=== PATIENT | female | born 1955 | race Caucasian/White ===

== ENCOUNTER 2019-01-26 10:28 | Inpatient (IN) ==
[2019-01-26] MEDS ORDERED: ACETAMINOPHEN 1,000 MG/100 ML VIAL IV STA (12:21)
[2019-01-26] MEDS ORDERED: SODIUM CHLORIDE 0.9% 1000ML 2,000 ML IV ONE (12:21)
[2019-01-26 13:00] LABS: Basophils # (auto) 0.02 K/uL (0-0.2); Basophils % (auto) 0.2 %; Eosinophils # (auto) 0.19 K/uL (0-0.5); Eosinophils % (auto) 2.3 %; Hematocrit (blood only) 34.9 % (37-47); Hemoglobin 11.4 g/dL (12.0-16.0); Immature Granulocytes # (auto) 0.02 K/uL (0.00-0.02); Immature Granulocytes % (auto) 0.2 %; Lymphocytes # (auto) 0.66 K/uL (1.2-3.4); Mean Corpuscular Hgb Conc 32.7 g/dL (32-36); Mean Corpuscular Volume 79.5 fL (80-100); Mean Platelet Volume 9.6 fL (7.4-10.4); Monocytes # (auto) 0.94 K/uL (0.11-0.59); Monocytes % (auto) 11.4 %; Neutrophils # (auto) 6.41 K/uL (1.4-6.5); Neutrophils % (auto) 77.9 %; Platelet Count 263 K/uL (130-400); RDW Standard Deviation 43.8 fL (36.4-46.3); Red Blood Count 4.39 M/uL (4.2-5.4); White Blood Count 8.24 K/uL (4.8-10.8)
--- NOTE | 2019-01-26 13:03 | XRay Report ---
XR chest 1V portable CLINICAL HISTORY: Sepsis COMPARISON STUDY: 04/22/2015 FINDINGS: The cardiac and mediastinal contours are normal. There is no evidence of focal pulmonary co nsolidation. There is no evidence of failure. No pleural effusions are visualized.[ There is a scolio sis. IMPRESSION: No active disease in the chest. Electronically signed by: Ge Llanos M.D. 01/26/2019 1:02 PM
--- NOTE | 2019-01-26 13:04 | XRay Report ---
XR knee LT 3V CLINICAL HISTORY: Pain. Swelling. Fever. COMPARISON: Left knee radiographs October 15, 2018. FINDINGS: Alignment of the revision left knee arthroplasty is anatomic. There is a large left knee j oint effusion. No prostatic fracture or lucency. IMPRESSION: 1. Status post revision left knee arthroplasty. No periprosthetic fracture or lucency. 2. Large left knee joint effusion. Electronically signed by: Kulwinder Jo M.D. 01/26/2019 1:03 PM
--- NOTE | 2019-01-26 13:04 | XRay Report ---
XR tibia fibula LT 2V CLINICAL HISTORY: Left lower leg pain COMPARISON: None DISCUSSION: There is a long stem total left knee arthroplasty. No fractures are visualized. No destru ctive lesions are evident. IMPRESSION: Postsurgical change. No acute fractures. No destructive lesions are visualized. Electronically signed by: Ge Llanos M.D. 01/26/2019 1:03 PM
[2019-01-26 13:13] LABS: Partial Thromboplastin Ratio 0.9; Partial Thromboplastin Time 25.1 Seconds (21.0-31.0); Prothrombin Time 10.4 Seconds (9.0-12.0)
[2019-01-26 13:20] LABS: Albumin Level 3.3 gm/dl (3.4-5.0); BUN Creatinine Ratio 11.4 (10-20); Calcium 8.9 mg/dl (8.5-10.1); Est GFR (African American) 106.1; Est GFR (Non-African American) 91.6; Magnesium 2.1 mg/dl (1.8-2.4); Potassium 3.8 mmol/L (3.5-5.1)
[2019-01-26 13:26] LABS: Influenza A virus by PCR Neg for Influ A (Neg); Influenza B virus by PCR Neg for Influ B (Neg)
[2019-01-26 13:29] LABS: Albumin Globulin Ratio 0.7 (0.9-2); Bilirubin,Total 0.9 mg/dl (0.2-1); C Reactive Protein 20.8 mg/dl (0-0.29); Globulin 4.5 gm/dl (2.5-4.0); Phosphorus 2.5 mg/dl (2.5-4.9); Total Protein 7.8 gm/dl (6.4-8.2)
[2019-01-26 14:29] LABS: Appearance Urine Clear (Clear); Bilirubin Urine Negative (Negative); Blood Urine Negative (Negative); Color Urine Yellow; Glucose Urine UA Negative (Negative); Ketones Urine Trace (Negative); Leukocyte Esterase Urine Negative (Negative); Nitrite Urine Negative (Negative); Protein Urine Negative (Negative); Urobilinogen Urine Negative (Negative); pH Urine 7.5 (4.5-7.5)
--- NOTE | 2019-01-26 14:39 | Emergency Department Note ---
Entered by Tamara Casper acting as a scribe for Schuyler Chase MD History of Present Illness General Chief complaint: Leg Injury/Pain Stated complaint: PAIN IN LEFT IBARRA Time Seen by Provider: 01/26/19 11:44 Source: patient Mode of arrival: ambulatory Limitations: no limitations History of Present Illness Onset (ago): day(s) 3 Location: lower extremity (left ibarra pain) Pain Consistency: + other (worsening) Maximum Pain Intensity: 9 Exacerbated By: + movement Associated symptoms: + fever/chills (The patient complains of fever. ), + headaches and + other (The patient complains of pain o the right side of her left ibarra, leg redness, and body aches. The patient denies congestion. ); no cough The patient is a 63 year old female with a history of knee replacement, knee surgery, blood clot, and MRSA who presents to the ED with complaints of worsening left ibarra pain that onset 3 days ago. The patient states that she had a knee surgery during the first week of October. She notes that 3 days ago she had blood work and an X-ray competed. The patient states that her pain is exacerbated with movement. The patient complains of pain on the right side of her left ibarra. She notes that the pain was on the left side of her left ibarra when she was seen, but has since radiated. The patient states that the redness was not present until today. She notes that she has had intermittent fevers, headache, and body aches. The patient denies cough and congestion. She notes that she has been taking extra strength Tylenol. Home Medications Home Medications Medication Instructions Recorded Confirmed Type Probiotic 1 tab PO BID 08/11/18 01/26/19 History albuterol sulfate [Proventil HFA] 2 puff INHALATION Q6H PRN 08/11/18 01/26/19 History famotidine [Pepcid] 20 mg PO DAILY PRN 08/11/18 01/26/19 History montelukast [Singulair] 10 mg PO HS 08/11/18 01/26/19 History rizatriptan 1 tab PO DAILY PRN 08/11/18 01/26/19 History tapentadol [Nucynta] 50 mg PO .q4-6 hours PRN #60 tab 10/17/18 01/26/19 Rx acetaminophen [Tylenol Arthritis 1,300 mg PO QAM 01/26/19 01/26/19 History Pain] celecoxib 200 mg PO UD 01/26/19 01/26/19 History salmeterol [Serevent Diskus] 1 inh INHALATION BID 01/26/19 01/26/19 History Allergies Allergy/AdvReac Type Severity Reaction Status Date / Time hydrocodone AdvReac Intermediate Headache Verified 01/27/19 13:07 hydromorphone AdvReac Intermediate NIGHTMARES Verified 01/27/19 13:07 oxycodone AdvReac Intermediate headaches Verified 01/27/19 13:07 tetracycline AdvReac Mild NAUSEA Verified 01/27/19 13:07 tramadol AdvReac Mild DISORIENTED Verified 01/27/19 13:07 PAIN MEDICATION Allergy Unknown SEVERE Uncoded 01/27/19 13:07 HEADACHES Past Med/Surg History Medical History Hx of blood clots History of revision of total replacement of left knee joint 10/15/18. SAB with peripheral nerve block. no issues. 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 Anemia CHRONIC- BASELINE HGB 10-11 RANGE PER CHART REVIEW Asthma GERD (gastroesophageal reflux disease) History of paroxysmal atrial tachycardia REMOTE- "LONG TIME AGO" PER PATIENT; NO RECENT ISSUES Hx of thrombosis LEFT GROIN (1979)- WAS ON COUMADIN; SINCE DISCONTINUED Left knee DJD Migraines Osteoarthritis Surgical History History of left knee surgery I&D and poly replacement History of tooth extraction WISDOM Hx of arthroscopic knee surgery MULTIPLE B/L; MOST RECENT= LEFT KNEE INSERTION ANTIBIOTIC SPACER/REMOVAL PROSTHESIS 2/2 INFECTION= 08/18/16= LMA#4 X 1 ATTEMPT Hx of hysterectomy Hx of tonsillectomy Hx of total knee replacement RIGHT AND LEFT PICC (peripherally inserted central catheter) in place Social History Preferred Language: Uzbek Communication Ability: Effective Associate Consulting Engineer Required: No Beliefs That Will Affect Care: None marital status: Current Living Situation: Spouse Current Living Situation Comment: CURRENTLY HAS Let COMING REGULARLY Other Information That Helps Us Care for You: No Feels Safe at Home: Yes Safety Concerns: Feels Safe At This Time Smoking Status: Never smoker Hx Alcohol Use: Yes Hx Substance Use: No Review of Systems See HPI for pertinent positives & negatives. and A total of 10 systems reviewed and were otherwise negative Physical Exam Vital Signs Vital Signs - 24 hr 01/26/19 15:30 01/26/19 15:31 01/26/19 16:00 Temperature Temperature Source Pulse Rate 83 86 86 Pulse Rate [Apical] Pulse Rate [Left Finger] Pulse Rate [Right Finger] Pulse Rate from SpO2 Sensor 84 86 Pulse Rhythm [Apical] Pulse Rhythm [Left Finger] Pulse Strength [Apical] Pulse Strength [Left Finger] Respiratory Rate 17 17 18 Respiratory Effort / Characteristics Respiratory Depth Respiratory Pattern Blood Pressure 118/67 Blood Pressure [Left Arm] Blood Pressure [Right Arm] Blood Pressure Mean 84 Blood Pressure Mean [Left Arm] Blood Pressure Mean [Right Arm] Blood Pressure Position [Left Arm] Blood Pressure Position [Right Arm] Pulse Oximetry 95 93 Oxygen Delivery Method 01/26/19 16:11 01/26/19 16:30 01/26/19 17:00 Temperature Temperature Source Pulse Rate 86 82 Pulse Rate [Apical] 80 Pulse Rate [Left Finger] Pulse Rate [Right Finger] Pulse Rate from SpO2 Sensor Pulse Rhythm [Apical] Pulse Rhythm [Left Finger] Pulse Strength [Apical] Pulse Strength [Left Finger] Respiratory Rate 18 15 11 L Respiratory Effort / Characteristics Respiratory Depth Respiratory Pattern Blood Pressure Blood Pressure [Left Arm] 118/67 Blood Pressure [Right Arm] Blood Pressure Mean Blood Pressure Mean [Left Arm] 84 Blood Pressure Mean [Right Arm] Blood Pressure Position [Left Arm] Blood Pressure Position [Right Arm] Pulse Oximetry 95 Oxygen Delivery Method Room Air 01/26/19 17:01 01/26/19 17:54 01/26/19 23:31 Temperature 37.1 C 37.0 C Temperature Source Oral Oral Pulse Rate 82 Pulse Rate [Apical] 78 Pulse Rate [Left Finger] Pulse Rate [Right Finger] 78 Pulse Rate from SpO2 Sensor Pulse Rhythm [Apical] Regular Pulse Rhythm [Left Finger] Pulse Strength [Apical] Normal Pulse Strength [Left Finger] Respiratory Rate 16 20 14 Respiratory Effort / Characteristics Respiratory Depth Normal Respiratory Pattern Blood Pressure 119/66 Blood Pressure [Left Arm] 122/74 Blood Pressure [Right Arm] 127/69 Blood Pressure Mean 83 Blood Pressure Mean [Left Arm] 90 Blood Pressure Mean [Right Arm] 88 Blood Pressure Position [Left Arm] Lying Blood Pressure Position [Right Arm] Lying Pulse Oximetry 96 96 Oxygen Delivery Method Room Air Room Air 01/27/19 06:54 01/27/19 13:09 Temperature 37.1 C 38.4 C H Temperature Source Oral Oral Pulse Rate Pulse Rate [Apical] Pulse Rate [Left Finger] 87 Pulse Rate [Right Finger] 85 Pulse Rate from SpO2 Sensor Pulse Rhythm [Apical] Pulse Rhythm [Left Finger] Regular Pulse Strength [Apical] Pulse Strength [Left Finger] Normal Respiratory Rate 18 20 Respiratory Effort / Characteristics Non-Labored Spontaneous Respiratory Depth Normal Respiratory Pattern Regular Blood Pressure Blood Pressure [Left Arm] 148/69 H Blood Pressure [Right Arm] 126/70 Blood Pressure Mean Blood Pressure Mean [Left Arm] 95 Blood Pressure Mean [Right Arm] 88 Blood Pressure Position [Left Arm] Lying Blood Pressure Position [Right Arm] Lying Pulse Oximetry 95 97 Oxygen Delivery Method Room Air Room Air GENERAL: Awake, alert, uncomfortable-appearing, in no distress HENT: Normocephalic, atraumatic. Oropharynx with dry mucous membranes and otherwise unremarkable. EYES: Normal conjunctiva. Sclera non-icteric. NECK: Supple. No nuchal rigidity. FROM. No JVD. RESPIRATORY: Clear to auscultation. CARDIAC: Tachycardic rate, regular rhythm. Extremities warm and well perfused. Pulses equal. ABDOMEN: Soft, non-distended. No tenderness to palpation. No rebound or guarding. No masses. RECTAL: Deferred. MUSCULOSKELETAL: Chest examination reveals no tenderness. The back is symmetrical on inspection without obvious abnormality. There is no CVA tenderness to palpation. No joint edema. LOWER EXTREMITIES: Left knee and pretibial region with mild warmth and tenderness scant erythema to the pretibial region. Distal PMS intact. Significant pain with ROM of left knee. NEURO: Normal sensorium. No sensory or motor deficits noted. SKIN: Warm and dry. No jaundice noted. Course 1214: Past medical records reviewed. The patient was evaluated in room D09, and a complete history and physical examination were performed. 1500: I called [facility] Orthopedics. Dr. Starkey will call back in between clinic appointments. 1640: I reviewed the patient's case with Dr. Starkey - Ortho [facility]. He states he will come see the patient and put in orders for admission. Consultations Consultation #1: 1640: I reviewed the patient's case with Dr. Lalito Ramirez [facility]. He states he will come see the patient and put in orders for admission. Time: 16:40 Administered Medications Diphenhydramine HCl (Benadryl) 25 mg IV Q8H PRN PRN Reason: Itching Stop: 02/25/19 16:36 Last Admin: 01/26/19 22:33 Dose: 25 mg Documented by: [id number] Dextrose/Sodium Chloride (D5w And 1/2nss) 1,000 mls @ 80 mls/hr IV .[id number] [facility]ANGELIST Stop: 02/25/19 17:29 Last Infusion: 01/27/19 13:38 Dose: 0 mls/hr Documented by: [id number] Infusion: 01/27/19 13:14 Dose: 0 mls/hr Documented by: [id number] Infusion: 01/27/19 06:23 Dose: 80 mls/hr Documented by: [id number] Admin: 01/27/19 05:31 Dose: 80 mls/hr Documented by: [id number] Infusion: 01/27/19 05:31 Dose: 80 mls/hr Documented by: [id number] Infusion: 01/26/19 22:22 Dose: 80 mls/hr Documented by: [id number] Infusion: 01/26/19 20:52 Dose: 0 mls/hr Documented by: [id number] Admin: 01/26/19 19:25 Dose: 80 mls/hr Documented by: [id number] Acetaminophen (Ofirmev) 1,000 mg in 100 mls @ 400 mls/hr IV Q8H PRN PRN Reason: Moderate Pain Stop: 02/25/19 17:33 Last Infusion: 01/26/19 23:57 Dose: 0 mls/hr Documented by: [id number] Admin: 01/26/19 23:42 Dose: 400 mls/hr Documented by: [id number] Vancomycin HCl 1,000 mg/ (Sodium Chloride) 270 mls @ 125 mls/hr IV Q12H EVANGELIST; Protocol Stop: 02/06/19 07:59 Last Infusion: 01/27/19 10:16 Dose: 0 mls/hr Documented by: [id number] Admin: 01/27/19 08:06 Dose: 125 mls/hr Documented by: [id number] Ketorolac Tromethamine (Toradol) 15 mg IV Q6H PRN PRN Reason: Pain Stop: 01/31/19 17:33 Last Admin: 01/27/19 05:31 Dose: 15 mg Documented by: [id number] Admin: 01/26/19 19:31 Dose: 15 mg Documented by: [id number] Montelukast Sodium (Singulair) 10 mg PO HS [facility]ANGELIST Stop: 02/25/19 20:59 Last Admin: 01/26/19 20:52 Dose: 10 mg Documented by: [id number] Salmeterol Xinafoate (Serevent Diskus) 1 puffs INH BID EVANGELIST Stop: 02/25/19 20:59 Last Admin: 01/27/19 08:07 Dose: 1 puffs Documented by: [id number] Admin: 01/26/19 20:52 Dose: 1 puffs Documented by: [id number] Discontinued Medications Acetaminophen (Ofirmev) 1,000 mg in 100 mls @ 400 mls/hr IV NOW STA Stop: 01/26/19 12:35 Last Infusion: 01/26/19 13:56 Dose: 0 mls/hr Documented by: [id number] Admin: 01/26/19 12:46 Dose: 400 mls/hr Documented by: [id number] Sodium Chloride (Nss 1000ml) 2,000 mls @ 999 mls/hr IV .Q2H1M ONE Stop: 01/26/19 14:21 Last Infusion: 01/26/19 17:12 Dose: 0 mls/hr Documented by: [id number] Admin: 01/26/19 12:47 Dose: 999 mls/hr Documented by: [id number] Sodium Chloride (Nss 1000ml) 1,000 mls @ 125 mls/hr IV .Q8H STA Stop: 01/27/19 00:42 Last Admin: 01/26/19 20:45 Dose: Not Given Documented by: [id number] Acetaminophen (Ofirmev) 65 mls @ 200 mls/hr IV NOW ONE Stop: 01/26/19 17:02 Last Infusion: 01/26/19 17:22 Dose: 0 mls/hr Documented by: [id number] Admin: 01/26/19 17:05 Dose: 200 mls/hr Documented by: [id number] Vancomycin HCl 1,500 mg/ (Sodium Chloride) 530 mls @ 200 mls/hr IV TODAY@1999 [facility] Stop: 01/26/19 22:38 Last Infusion: 01/26/19 23:09 Dose: 0 mls/hr Documented by: [id number] Admin: 01/26/19 20:30 Dose: 200 mls/hr Documented by: [id number] Medical Decision Making Differential Diagnosis Differential diagnosis: Etiologies such as cellulitis, abscess, osteomyelitis, MRSA infection, DVT, necrotizing fasciitis, dermatitis, drug eruption, as well as others were entertained. Medical Records Attestation: I reviewed the patient's medical records. Home Medications Current Medication List: was personally reviewed by me Laboratory Data Attestation: I reviewed the patient's lab results. Result diagrams: 01/26/19 12:40 01/27/19 06:38 Lab Results 01/26/19 01/26/19 01/26/19 Range/Units 12:40 12:40 12:40 WBC 8.24 (4.8-10.8) K/uL RBC 4.39 (4.2-5.4) M/uL Hgb 11.4 L (12.0-16.0) g/dL Hct 34.9 L (37-47) % MCV 79.5 L (80-100) fL MCH 26.0 (25-34) pg MCHC 32.7 (32-36) g/dL RDW Std Deviation 43.8 (36.4-46.3) fL RDW Coeff of Yolanda 15.0 H (11.5-14.5) % Plt Count 263 (130-400) K/uL MPV 9.6 (7.4-10.4) fL Immature Gran % (Auto) 0.2 % Neut % (Auto) 77.9 % Lymph % (Auto) 8.0 % Chase % (Auto) 11.4 % Eos % (Auto) 2.3 % Baso % (Auto) 0.2 % Immature Gran # (Auto) 0.02 (0.00-0.02) K/uL Neut # (Auto) 6.41 (1.4-6.5) K/uL Lymph # (Auto) 0.66 L (1.2-3.4) K/uL Chase # (Auto) 0.94 H (0.11-0.59) K/uL Eos # (Auto) 0.19 (0-0.5) K/uL Baso # (Auto) 0.02 (0-0.2) K/uL ESR (0-21) mm/hr PT 10.4 (9.0-12.0) Seconds INR 1.0 (0.9-1.1) APTT 25.1 (21.0-31.0) Seconds PTT Ratio 0.9 Sodium 135 L (136-145) mmol/L Potassium 3.8 (3.5-5.1) mmol/L Chloride 102 (98-107) mmol/L Carbon Dioxide 26 (21-32) mmol/L Anion Gap 7.0 (3-11) BUN 8 (7-18) mg/dl Creatinine 0.70 (0.6-1.2) mg/dl Est Cr Clr Drug Dosing 76.0 ml/min Est GFR ( Amer) 106.1 Est GFR (Non-Af Amer) 91.6 BUN/Creatinine Ratio 11.4 (10-20) Glucose 109 H (70-99) mg/dl Lactate (0.4-2.0) mmol/L Calcium 8.9 (8.5-10.1) mg/dl Phosphorus 2.5 (2.5-4.9) mg/dl Magnesium 2.1 (1.8-2.4) mg/dl Total Bilirubin 0.9 (0.2-1) mg/dl AST 9 L (15-37) U/L ALT 16 (12-78) U/L Alkaline Phosphatase 92 (45-117) U/L C-Reactive Protein 20.80 H (0-0.29) mg/dl Total Protein 7.8 (6.4-8.2) gm/dl Albumin 3.3 L (3.4-5.0) gm/dl Globulin 4.5 H (2.5-4.0) gm/dl Albumin/Globulin Ratio 0.7 L (0.9-2) Procalcitonin (0-0.5) ng/ml Urine Color Urine Appearance (Clear) Urine pH (4.5-7.5) Ur Specific [place] (1.000-1.030) Urine Protein (Negative) Urine Glucose (UA) (Negative) Urine Ketones (Negative) Urine Blood (Negative) Urine Nitrite (Negative) Urine Bilirubin (Negative) Urine Urobilinogen (Negative) Ur Leukocyte Esterase (Negative) Urine WBC (Auto) (0-5) /hpf Urine RBC (Auto) (0-4) /hpf U Hyaline Cast (Auto) (0-5) /lpf U Epithel Cells (Auto) (0-5) /lpf Urine Bacteria (Auto) (Negative) Fluid Source Fluid Color Fluid Appearance Fluid WBC /uL Fluid RBC /uL Fluid Polynuclear WBCs % Fluid Mononuclear WBCs % Influenza Type A (PCR) (Neg) Influenza Type B (PCR) (Neg) 01/26/19 01/26/19 01/26/19 Range/Units 12:40 12:40 12:40 WBC (4.8-10.8) K/uL RBC (4.2-5.4) M/uL Hgb (12.0-16.0) g/dL Hct (37-47) % MCV (80-100) fL MCH (25-34) pg MCHC (32-36) g/dL RDW Std Deviation (36.4-46.3) fL RDW Coeff of Yolanda (11.5-14.5) % Plt Count (130-400) K/uL MPV (7.4-10.4) fL Immature Gran % (Auto) % Neut % (Auto) % Lymph % (Auto) % Chase % (Auto) % Eos % (Auto) % Baso % (Auto) % Immature Gran # (Auto) (0.00-0.02) K/uL Neut # (Auto) (1.4-6.5) K/uL Lymph # (Auto) (1.2-3.4) K/uL Chase # (Auto) (0.11-0.59) K/uL Eos # (Auto) (0-0.5) K/uL Baso # (Auto) (0-0.2) K/uL ESR 75 H (0-21) mm/hr PT (9.0-12.0) Seconds INR (0.9-1.1) APTT (21.0-31.0) Seconds PTT Ratio Sodium (136-145) mmol/L Potassium (3.5-5.1) mmol/L Chloride (98-107) mmol/L Carbon Dioxide (21-32) mmol/L Anion Gap (3-11) BUN (7-18) mg/dl Creatinine (0.6-1.2) mg/dl Est Cr Clr Drug Dosing ml/min Est GFR ( Amer) Est GFR (Non-Af Amer) BUN/Creatinine Ratio (10-20) Glucose (70-99) mg/dl Lactate 1.0 (0.4-2.0) mmol/L Calcium (8.5-10.1) mg/dl Phosphorus (2.5-4.9) mg/dl Magnesium (1.8-2.4) mg/dl Total Bilirubin (0.2-1) mg/dl AST (15-37) U/L ALT (12-78) U/L Alkaline Phosphatase (45-117) U/L C-Reactive Protein (0-0.29) mg/dl Total Protein (6.4-8.2) gm/dl Albumin (3.4-5.0) gm/dl Globulin (2.5-4.0) gm/dl Albumin/Globulin Ratio (0.9-2) Procalcitonin 0.07 (0-0.5) ng/ml Urine Color Urine Appearance (Clear) Urine pH (4.5-7.5) Ur Specific [place] (1.000-1.030) Urine Protein (Negative) Urine Glucose (UA) (Negative) Urine Ketones (Negative) Urine Blood (Negative) Urine Nitrite (Negative) Urine Bilirubin (Negative) Urine Urobilinogen (Negative) Ur Leukocyte Esterase (Negative) Urine WBC (Auto) (0-5) /hpf Urine RBC (Auto) (0-4) /hpf U Hyaline Cast (Auto) (0-5) /lpf U Epithel Cells (Auto) (0-5) /lpf Urine Bacteria (Auto) (Negative) Fluid Source Fluid Color Fluid Appearance Fluid WBC /uL Fluid RBC /uL Fluid Polynuclear WBCs % Fluid Mononuclear WBCs % Influenza Type A (PCR) (Neg) Influenza Type B (PCR) (Neg) 01/26/19 01/26/19 01/26/19 Range/Units 12:40 14:10 17:15 WBC (4.8-10.8) K/uL RBC (4.2-5.4) M/uL Hgb (12.0-16.0) g/dL Hct (37-47) % MCV (80-100) fL MCH (25-34) pg MCHC (32-36) g/dL RDW Std Deviation (36.4-46.3) fL RDW Coeff of Yolanda (11.5-14.5) % Plt Count (130-400) K/uL MPV (7.4-10.4) fL Immature Gran % (Auto) % Neut % (Auto) % Lymph % (Auto) % Chase % (Auto) % Eos % (Auto) % Baso % (Auto) % Immature Gran # (Auto) (0.00-0.02) K/uL Neut # (Auto) (1.4-6.5) K/uL Lymph # (Auto) (1.2-3.4) K/uL Chase # (Auto) (0.11-0.59) K/uL Eos # (Auto) (0-0.5) K/uL Baso # (Auto) (0-0.2) K/uL ESR (0-21) mm/hr PT (9.0-12.0) Seconds INR (0.9-1.1) APTT (21.0-31.0) Seconds PTT Ratio Sodium (136-145) mmol/L Potassium (3.5-5.1) mmol/L Chloride (98-107) mmol/L Carbon Dioxide (21-32) mmol/L Anion Gap (3-11) BUN (7-18) mg/dl Creatinine (0.6-1.2) mg/dl Est Cr Clr Drug Dosing ml/min Est GFR ( Amer) Est GFR (Non-Af Amer) BUN/Creatinine Ratio (10-20) Glucose (70-99) mg/dl Lactate (0.4-2.0) mmol/L Calcium (8.5-10.1) mg/dl Phosphorus (2.5-4.9) mg/dl Magnesium (1.8-2.4) mg/dl Total Bilirubin (0.2-1) mg/dl AST (15-37) U/L ALT (12-78) U/L Alkaline Phosphatase (45-117) U/L C-Reactive Protein (0-0.29) mg/dl Total Protein (6.4-8.2) gm/dl Albumin (3.4-5.0) gm/dl Globulin (2.5-4.0) gm/dl Albumin/Globulin Ratio (0.9-2) Procalcitonin (0-0.5) ng/ml Urine Color Yellow Urine Appearance Clear (Clear) Urine pH 7.5 (4.5-7.5) Ur Specific [place] 1.010 (1.000-1.030) Urine Protein Negative (Negative) Urine Glucose (UA) Negative (Negative) Urine Ketones Trace H (Negative) Urine Blood Negative (Negative) Urine Nitrite Negative (Negative) Urine Bilirubin Negative (Negative) Urine Urobilinogen Negative (Negative) Ur Leukocyte Esterase Negative (Negative) Urine WBC (Auto) (0-5) /hpf Urine RBC (Auto) (0-4) /hpf U Hyaline Cast (Auto) (0-5) /lpf U Epithel Cells (Auto) (0-5) /lpf Urine Bacteria (Auto) (Negative) Fluid Source LEFT KNEE Fluid Color YELLOW Fluid Appearance CLOUDY Fluid WBC 51487 /uL Fluid RBC 17023 /uL Fluid Polynuclear WBCs 95.7 % Fluid Mononuclear WBCs 4.3 % Influenza Type A (PCR) Neg for Influ A (Neg) Influenza Type B (PCR) Neg for Influ B (Neg) 01/27/19 01/27/19 Range/Units 06:38 Unknown WBC (4.8-10.8) K/uL RBC (4.2-5.4) M/uL Hgb (12.0-16.0) g/dL Hct (37-47) % MCV (80-100) fL MCH (25-34) pg MCHC (32-36) g/dL RDW Std Deviation (36.4-46.3) fL RDW Coeff of Yolanda (11.5-14.5) % Plt Count (130-400) K/uL MPV (7.4-10.4) fL Immature Gran % (Auto) % Neut % (Auto) % Lymph % (Auto) % Chase % (Auto) % Eos % (Auto) % Baso % (Auto) % Immature Gran # (Auto) (0.00-0.02) K/uL Neut # (Auto) (1.4-6.5) K/uL Lymph # (Auto) (1.2-3.4) K/uL Chase # (Auto) (0.11-0.59) K/uL Eos # (Auto) (0-0.5) K/uL Baso # (Auto) (0-0.2) K/uL ESR (0-21) mm/hr PT (9.0-12.0) Seconds INR (0.9-1.1) APTT (21.0-31.0) Seconds PTT Ratio Sodium (136-145) mmol/L Potassium (3.5-5.1) mmol/L Chloride (98-107) mmol/L Carbon Dioxide (21-32) mmol/L Anion Gap (3-11) BUN (7-18) mg/dl Creatinine 0.57 L (0.6-1.2) mg/dl Est Cr Clr Drug Dosing 93.3 ml/min Est GFR ( Amer) 113.5 Est GFR (Non-Af Amer) 98.0 BUN/Creatinine Ratio (10-20) Glucose (70-99) mg/dl Lactate (0.4-2.0) mmol/L Calcium (8.5-10.1) mg/dl Phosphorus (2.5-4.9) mg/dl Magnesium (1.8-2.4) mg/dl Total Bilirubin (0.2-1) mg/dl AST (15-37) U/L ALT (12-78) U/L Alkaline Phosphatase (45-117) U/L C-Reactive Protein (0-0.29) mg/dl Total Protein (6.4-8.2) gm/dl Albumin (3.4-5.0) gm/dl Globulin (2.5-4.0) gm/dl Albumin/Globulin Ratio (0.9-2) Procalcitonin (0-0.5) ng/ml Urine Color Yellow Urine Appearance Clear (Clear) Urine pH 6.0 (4.5-7.5) Ur Specific [place] 1.013 (1.000-1.030) Urine Protein Negative (Negative) Urine Glucose (UA) Negative (Negative) Urine Ketones Negative (Negative) Urine Blood Trace H (Negative) Urine Nitrite Negative (Negative) Urine Bilirubin Negative (Negative) Urine Urobilinogen Negative (Negative) Ur Leukocyte Esterase Negative (Negative) Urine WBC (Auto) 1-5 (0-5) /hpf Urine RBC (Auto) 0-4 (0-4) /hpf U Hyaline Cast (Auto) 1-5 (0-5) /lpf U Epithel Cells (Auto) 20-30 H (0-5) /lpf Urine Bacteria (Auto) Negative (Negative) Fluid Source Fluid Color Fluid Appearance Fluid WBC /uL Fluid RBC /uL Fluid Polynuclear WBCs % Fluid Mononuclear WBCs % Influenza Type A (PCR) (Neg) Influenza Type B (PCR) (Neg) Imaging Data Radiologist's Impression: Radiology results as stated below per my review and the radiologist's interpretation: LEFT LOWER EXTREMITY VENOUS DOPPLER HISTORY: Left leg pain swelling COMPARISON STUDY: None. FINDINGS: Linear nonocclusive echogenic stranding within the left common femoral vein consistent with chronic thrombus. Otherwise, the remaining left lower extremity deep venous structures are patent. Mildly enlarged and hypoechoic left inguinal and left popliteal lymph nodes. The dominant popliteal lymph node measures 1.3 x 1.0 cm. IMPRESSION: 1. No acute DVT within the left lower extremity. 2. Small amount of nonocclusive linear chronic thrombus within the left common femoral vein. 3. Mild left inguinal left popliteal lymphadenopathy. This could be reactive to the recent surgery. Electronically signed by: Gordo Deleon M.D. 01/26/2019 2:43 PM Dictated: 01/26/19 1440 Transcribed: 01/26/19 1440 XR tibia fibula LT 2V CLINICAL HISTORY: Left lower leg pain COMPARISON: None DISCUSSION: There is a long stem total left knee arthroplasty. No fractures are visualized. No destructive lesions are evident. IMPRESSION: Postsurgical change. No acute fractures. No destructive lesions are visualized. Electronically signed by: Ge Llanos M.D. 01/26/2019 1:03 PM Dictated: 01/26/19 1302 Transcribed: 01/26/19 1302 XR knee LT 3V CLINICAL HISTORY: Pain. Swelling. Fever. COMPARISON: Left knee radiographs October 15, 2018. FINDINGS: Alignment of the revision left knee arthroplasty is anatomic. There is a large left knee joint effusion. No prostatic fracture or lucency. IMPRESSION: 1. Status post revision left knee arthroplasty. No periprosthetic fracture or lucency. 2. Large left knee joint effusion. Electronically signed by: Kulwinder Jo M.D. 01/26/2019 1:03 PM Dictated: 01/26/19 1301 Transcribed: 01/26/19 1301 XR chest 1V portable CLINICAL HISTORY: Sepsis COMPARISON STUDY: 04/22/2015 FINDINGS: The cardiac and mediastinal contours are normal. There is no evidence of focal pulmonary consolidation. There is no evidence of failure. No pleural effusions are visualized.[ There is a scoliosis. IMPRESSION: No active disease in the chest. Electronically signed by: Ge Llanos M.D. 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 On arrival, the patient is uncomfortable appearing but no acute distress, febrile to 38.1 with heart rate in the 110s and vital signs otherwise stable. On exam the patient has mild erythema to her left pretibial region with warmth of her left knee and lower leg. Left knee with large effusion with pain with range of motion. Distal PMS intact. WBC within normal limits. H/H 11.4/34.9 within patient's prior range. Platelets within normal limits. ESR and CRP demonstrate increased from last week 75 up from 28 and 20.8 up from 12.3, respectively. Pro-calcitonin within normal limits. UA negative for infection. Flu negative. Plain film of the knee and tibia demonstrate large knee effusion but otherwise no radiographic evidence of osseous involvement. Cultures drawn and pending. ABXs deferred until likely ortho fluid aspiration. Case was discussed with Dr. Starkey, the patient's [facility] surgeon, who agrees with admission to r/o joint infection and they will evaluate the patient at the bedside and perform arthrocentesis. Impression & Plan Cellulitis Discharge Plan Visit Data *Final* Discharge Date/Time: 01/26/19 17:30 Chief Complaint: Leg Injury/Pain Stated Complaint: PAIN IN LEFT IBARRA ED Provider: Schuyler Chase Discharge Problem: Cellulitis Patient Disposition: Admitted As Inpatient Discharge Instructions Interventions: ED Discharge Assessment Last Done: 01/26/19 17:30 Discharge Problem: Cellulitis Qualifiers: Site of cellulitis: extremity Site of cellulitis of extremity: lower extremity Laterality: left Qualified Code(s): L03.116 - Cellulitis of left lower limb The scribe's documentation has been prepared under my direction and personally reviewed by me in its entirety. I confirm that the note above accurately reflects all work, treatment, procedures, and medical decision making performed by me.
--- NOTE | 2019-01-26 14:44 | Ultrasound Report ---
LEFT LOWER EXTREMITY VENOUS DOPPLER HISTORY: Left leg pain swelling COMPARISON STUDY: None. FINDINGS: Linear nonocclusive echogenic stranding within the left common femoral vein consistent with chronic thrombus. Otherwise, the remaining left lower extremity deep venous structures are patent. M ildly enlarged and hypoechoic left inguinal and left popliteal lymph nodes. The dominant popliteal ly mph node measures 1.3 x 1.0 cm. IMPRESSION: 1. No acute DVT within the left lower extremity. 2. Small amount of nonocclusive linear chronic thrombus within the left common femoral vein. 3. Mild left inguinal left popliteal lymphadenopathy. This could be reactive to the recent surgery. Electronically signed by: Gordo Deleon M.D. 01/26/2019 2:43 PM
[2019-01-26] MEDS ORDERED: OXYCODONE/ACETAMINOPHEN 5mg/325mg TAB PO PRN (16:37)
[2019-01-26] MEDS ORDERED: ONDANSETRON INJ 2 MG/ML 2 ML VIAL IV PRN (16:37)
[2019-01-26] MEDS ORDERED: DiphenhydrAMINE HCL 50 MG/ML VIAL IV PRN (16:37)
[2019-01-26] MEDS ORDERED: SODIUM CHLORIDE 0.9% 1000ML 1,000 ML IV STA (16:43)
[2019-01-26] MEDS ORDERED: ACETAMINOPHEN 65 ML IV ONE (16:43)
[2019-01-26] MEDS ORDERED: TAPENTADOL HCL 50 MG TAB PO PRN ×2 (17:32→17:34)
[2019-01-26] MEDS ORDERED: ALBUTEROL HFA 8 GM INHALER INH PRN (17:34)
[2019-01-26] MEDS ORDERED: HYDROmorphone INJ 0.5 MG/0.5 ML SYR IV PRN (17:34)
[2019-01-26] MEDS ORDERED: RIZATRIPTAN BENZOATE 10 MG TAB PO PRN (17:34)
[2019-01-26] MEDS ORDERED: VANCOMYCIN CONSULT ACTIVE PRN (18:01)
[2019-01-26] MEDS ORDERED: MoRPHine SULFATE 4 MG/ML 1 ML CARP\\VIAL IV PRN (18:06)
[2019-01-26 18:37] LABS: Color Body Fluid YELLOW; Mononuclear WBC Body Fluid 4.3 %; Polynuclear WBC Body Fluid 95.7 %; RBC Body Fluid (A) 14000 /uL; WBC Body Fluid (A) 43520 /uL
[2019-01-26 19:04] LABS: Source Body Fluid LEFT KNEE
--- NOTE | 2019-01-26 19:08 | Anesthesiology Consultation ---
Date of Service January 26, 2019 Assessment & Plan (1) Encounter for pre-operative examination: Chart Review Chart Review: Acceptable Risk for Surgery and Patient NOT seen in Pre Admission Testing Consults Requested none History Surgery Operation Date: 01/27/19 07:30 Proposed Procedures p Left Knee Incision and Drainage, Poly Exchange with Antibiotic Beads - Giovanni Starkey DO Height/Weight Height: 5 ft 6 in Weight: 61.8 kg Allergies Allergy/AdvReac Type Severity Reaction Status Date / Time hydrocodone AdvReac Intermediate Headache Verified 01/26/19 12:27 hydromorphone AdvReac Intermediate NIGHTMARES Verified 01/26/19 12:27 oxycodone AdvReac Intermediate headaches Verified 01/26/19 12:27 tetracycline AdvReac Mild NAUSEA Verified 01/26/19 12:27 tramadol AdvReac Mild DISORIENTED Verified 01/26/19 12:27 PAIN MEDICATION Allergy Unknown SEVERE Uncoded 01/26/19 12:27 HEADACHES Medications Home Medications Medication Instructions Recorded Confirmed Last Taken Probiotic 1 tab PO BID 08/11/18 01/26/19 01/26/19 albuterol sulfate [Proventil HFA] 2 puff INHALATION Q6H PRN 08/11/18 01/26/19 Unknown famotidine [Pepcid] 20 mg PO DAILY PRN 08/11/18 01/26/19 01/25/19 montelukast [Singulair] 10 mg PO HS 08/11/18 01/26/19 01/25/19 rizatriptan 1 tab PO DAILY PRN 08/11/18 01/26/19 Unknown tapentadol [Nucynta] 50 mg PO .q4-6 hours PRN #60 tab 10/17/18 01/26/19 Unknown acetaminophen [Tylenol Arthritis 1,300 mg PO QAM 01/26/19 01/26/19 01/26/19 Pain] celecoxib 200 mg PO UD 01/26/19 01/26/19 01/25/19 20:00 salmeterol [Serevent Diskus] 1 inh INHALATION BID 01/26/19 01/26/19 01/26/19 Past Medical History Medical History Hx of blood clots History of revision of total replacement of left knee joint 10/15/18. SAB with peripheral nerve block. no issues. 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 Anemia CHRONIC- BASELINE HGB 10-11 RANGE PER CHART REVIEW Asthma GERD (gastroesophageal reflux disease) History of paroxysmal atrial tachycardia REMOTE- "LONG TIME AGO" PER PATIENT; NO RECENT ISSUES Hx of thrombosis LEFT GROIN (1979)- WAS ON COUMADIN; SINCE DISCONTINUED Left knee DJD Migraines Osteoarthritis Past Surgical History Surgical History History of left knee surgery I&D and poly replacement History of tooth extraction WISDOM Hx of arthroscopic knee surgery MULTIPLE B/L; MOST RECENT= LEFT KNEE INSERTION ANTIBIOTIC SPACER/REMOVAL PROSTHESIS 2/ INFECTION= 08/18/16= LMA#4 X 1 ATTEMPT Hx of hysterectomy Hx of tonsillectomy Hx of total knee replacement RIGHT AND LEFT PICC (peripherally inserted central catheter) in place Social History Smoking Status: Never smoker Hx Alcohol Use: Yes Alcohol type: wine alcohol intake frequency: holidays/special occasions only Hx Substance Use: No substance use type: does not use Physical Exam Vital Signs Last Vital Signs Temp 37.1 C 01/26/19 17:54 Pulse 78 01/26/19 17:54 Resp 20 01/26/19 17:54 BP 122/74 01/26/19 17:54 Pulse Ox 96 01/26/19 17:54 Testing Electrocardiogram Date: 03/15/18 Findings: + NSR @ (76) sinus rhythm is sinus arrhythmia. Chest X-Ray Date: 01/26/19 FINDINGS: The cardiac and mediastinal contours are normal. There is no evidence of focal pulmonary consolidation. There is no evidence of failure. No pleural effusions are visualized.[ There is a scoliosis. IMPRESSION: No active disease in the chest. Laboratory Results 01/26/19 12:40 01/26/19 12:40 PT 10.4 Seconds (9.0-12.0) 01/26/19 12:40 INR 1.0 (0.9-1.1) 01/26/19 12:40 APTT 25.1 Seconds (21.0-31.0) 01/26/19 12:40 Urine Color Yellow 01/26/19 14:10 Urine Appearance Clear (Clear) 01/26/19 14:10 Urine pH 7.5 (4.5-7.5) 01/26/19 14:10 Ur Specific [place] 1.010 (1.000-1.030) 01/26/19 14:10 Urine Protein Negative (Negative) 01/26/19 14:10 Urine Glucose (UA) Negative (Negative) 01/26/19 14:10 Urine Ketones Trace (Negative) H 01/26/19 14:10 Urine Nitrite Negative (Negative) 01/26/19 14:10 Ur Leukocyte Esterase Negative (Negative) 01/26/19 14:10
[2019-01-26] MEDS: D5W AND 1/2NSS 1,000 ML IV SCH (19:25)
[2019-01-26] MEDS: KETOROLAC TROMETHAMINE 15 MG/ML VIAL IV PRN (19:31)
[2019-01-26] MEDS ORDERED: VANCOMYCIN HCL 1,500 MG in SODIUM CHLORIDE 0.9% 500 ML IV SCH (20:00)
[2019-01-26] MEDS: SALMETEROL XINAFOATE 50MCG 28 BLISTER INH INH SCH (20:52)
[2019-01-26] MEDS: MONTELUKAST SODIUM 10 MG TABLET PO SCH (20:52)
--- NOTE | 2019-01-26 21:10 | Pharmacy Report ---
Pharmacy Abx Initial Consult - Date of Service January 26, 2019 - Pharmacy Dosing Scope Date of Consult: 01/26/19 Consultation requested by: [facility] is consulted to initiate vancomycin IV dosing therapy, order appropriate labs and adjust drug dose/frequency. - Subjective The patient is a 63 year old F admitted on 01/26/19 16:37 with infected left knee. Hx of TKA in 2014 with revision Oct 2018. Possible OR 01/27/18. - Objective Height: 5 ft 6 in Weight: 61.8 kg Vital Signs (Past 12hrs): Vital Signs Temp Pulse Pulse Resp BP BP Pulse Ox 01/26/19 17:54 37.1 C 78 20 122/74 96 01/26/19 17:01 82 16 119/66 01/26/19 17:00 82 11 L 01/26/19 16:30 86 15 01/26/19 16:11 80 18 118/67 95 01/26/19 16:00 86 18 01/26/19 15:31 86 17 93 01/26/19 15:30 83 17 118/67 95 01/26/19 15:01 89 18 95 01/26/19 15:00 86 18 126/71 95 01/26/19 14:45 89 8 L 01/26/19 14:00 99 H 21 136/72 93 01/26/19 13:30 96 H 20 133/70 98 01/26/19 13:01 105 H 19 124/89 97 01/26/19 12:51 96 01/26/19 12:30 102 H 23 149/87 H 95 01/26/19 12:07 105 H 15 142/71 H 96 01/26/19 11:14 38.1 C H 110 H 20 138/70 96 Lab Results (24hrs): Laboratory Tests (24 Hours) 01/26/19 01/26/19 01/26/19 12:40 12:40 12:40 WBC Neut # (Auto) ESR 75 H Creatinine 0.70 Est Cr Clr Drug Dosing 76.0 C-Reactive Protein 20.80 H Procalcitonin 0.07 01/26/19 12:40 WBC 8.24 Neut # (Auto) 6.41 ESR Creatinine Est Cr Clr Drug Dosing C-Reactive Protein Procalcitonin Micro Results: 01/26/19 17:15 Gram Stain - Pending Knee,Left Aerobic and Anaerobic Culture - Pending 01/26/19 12:40 Blood Culture - Pending Blood 01/26/19 12:40 Blood Culture - Pending Blood - Risk Factors for Resistance * Hospitalization for 48 hours or more within the past 90 days * 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 Pharmacist will evaluate. Pharmacy will continue to follow and will adjust dose/frequency as necessary. Thank you.
--- NOTE | 2019-01-26 22:14 | History and Physical Report ---
DATE OF ADMISSION: 01/26/2019 CHIEF COMPLAINT: Pain in the left lower extremity. HISTORY OF PRESENT ILLNESS: The patient is a 63-year-old white female known to our practice who is status post left total knee revision in October of 2018. The patient had an infection of the previous TKA and underwent removal of hardware and implantation of antibiotic spacer prior to that. She was then on IV antibiotics for 6 weeks and then once the antibiotics were finished, she then had her revision surgery done. She states that since that time she has had no problems. She has been doing her physical therapy. She states that around of last week, she had some general malaise and fever ranging up to 101.7. She then developed some pain below the knee along the ibarra of the left lower extremity. She contacted Dr. Starkey' office and saw him in the office on Saturday. She was feeling somewhat better that day and labs were drawn and noted to be within reasonable limits from the patient's understanding. She was started on Celebrex and was sent home. Over the next several days, the patient's condition began to increase as far as pain goes with the lower extremity. She denies left knee pain but states that most of her pain has been on the ibarra itself. It continued to worsen to the point where she was directed to the Emergency Room. Labs were drawn today and showed a white count of 8.24, which was noted to be 9.6 on 01/23/2019. Her sed rate on 01/23/2019 was 28 and today's is 75. C-reactive protein drawn on the showed 12.3 and today's was 20.8. With a developing cellulitis, Dr. Starkey asked me to see the patient in the Emergency Room to aspirate her knee. This was done in the Emergency Room and afterwards she is being admitted for IV antibiotics. PAST MEDICAL HISTORY: History of previous MRSA infection, left knee, asthma, GERD, history of thrombosis, left groin in 1979, migraine headaches, osteoarthritis. PAST SURGICAL HISTORY: Above noted previous surgeries to her left knee including recent revision left TKA in October, wisdom teeth extraction in the past, history of arthroscopy of both knees right and left x3, hysterectomy, tonsillectomy, right total knee arthroplasty in the past. SOCIAL HISTORY: The patient is a nonsmoker who drinks alcohol on occasion. She is and lives with her spouse. FAMILY HISTORY: Noncontributory. MEDICATIONS: Tylenol 1300 mg p.o. q.a.m., albuterol 2 puffs inhaled q. 6 hours p.r.n., Celebrex 200 mg p.o. as directed, Pepcid 20 mg p.o. daily p.r.n., Singulair 10 mg p.o. at bedtime, probiotic 1 tab p.o. b.i.d., rizatriptan 1 tab p.o. daily p.r.n., Serevent Diskus 1 inhalation b.i.d., Nucynta 50 mg p.o. q. 4-6 hours p.r.n. ALLERGIES: HYDROCODONE, HYDROMORPHONE, OXYCODONE, TETRACYCLINE, TRAMADOL. THE PATIENT STATES MOST PAIN MEDICATIONS CAUSE NAUSEA AND VOMITING. PERCOCET CAUSES VIVID DREAMS/NIGHTMARES. REVIEW OF SYSTEMS: Noted fevers previous week, but none since then, with a feeling of general malaise and nausea, but no vomiting, no diarrhea, abdominal discomfort in general. She denies any increased cough or sputum production. No increased shortness of breath at rest or on exertion. No chest pain, chest pressure, irregular heartbeat. No hemoptysis. No current abdominal pain. No current nausea, vomiting or diarrhea. No hematemesis, melena, or hematochezia. No dysuria, hematuria, or polyuria. No dizziness or lightheadedness. PHYSICAL EXAMINATION: GENERAL: The patient is a well-developed, well-nourished, white female who is alert and oriented x3, in no acute distress, pleasant and cooperative. She looks apparently comfortable at this time and states that since she has received her Ofirmev, that her pain is controlled in her lower extremity. HEENT: Normocephalic and atraumatic. There is no scleral icterus or injection. Nasal airway is patent. Oral mucosa is pink and moist. NECK: Supple. HEART: Regular rate and rhythm. LUNGS: Clear to auscultation. ABDOMEN: Soft, round, and nontender. Bowel sounds are present x4. GENITALIA AND RECTAL: Not performed at this time. EXTREMITIES: On examination of the patient's left lower extremity, she has some noted swelling of the left knee, but it is not hot or erythematous at this time. I can do some gentle range of motion of the left knee, which causes her exquisite tenderness in the anterior compartments of the calf and ibarra, but not in the knee itself. I can palpate the knee without causing her pain. The incision is well healed and there are no areas of open drainage. She has some mild erythema noted of the lower extremity below the knee going down to the ankle. She does have good ankle range of motion without pain and no pain on the dorsum of the foot. Sensation is intact. She has exquisite tenderness on palpation of the anterior portion of the lower extremity incorporating the anterior compartments of the calf and also the ibarra itself. No obvious calf pain at this time in the left calf. Right lower extremity is essentially benign at this time. Previous scar from right TKA is noted with no pain or tenderness over this area or in the right lower extremity. Upper extremities are unaffected and has good range of motion of the shoulders, elbows, and wrists. No gross motor or sensory loss seen at this time. ASSESSMENT: Cellulitis, left lower extremity. Rule out infection, left total knee arthroplasty. PLAN: The patient agreed to undergo aspiration of the left knee. Risks of the aspiration were discussed with the patient including increased bleeding into the joint, possibility of seeding bacteria or causing infection, but not limited to these. She again was in agreement. At that point in time, a lateral suprapatellar pouch aspiration site was chosen and marked, was swabbed with 2 alcohol swabs and 3 Betadine swabs and let to dry. At that point, ethyl chloride was used to anesthetize the skin and an 18-gauge needle was then inserted into the suprapatellar pouch. A 64 mL of cloudy dark straw-colored fluid was then removed from the joint itself without difficulty. The needle was then removed and pressure was applied over the aspiration site. A Band-Aid was then placed over the aspiration site. The patient tolerated the procedure well. We will send the aspiration for cell count and differential. Also aerobic and anaerobic cultures will be ordered as well. The patient will be admitted under Dr. Starkey' service and she will be started on IV antibiotics and some pain medication to help control her pain of her lower extremity. She will be made n.p.o. after midnight in case of her aspirate returning back positive. If it does return positive, she will have to undergo open irrigation and debridement. KRYSTEN
[2019-01-26] MEDS: ACETAMINOPHEN 1,000 MG/100 ML VIAL IV PRN (23:42)
[2019-01-27] MEDS: KETOROLAC TROMETHAMINE 15 MG/ML VIAL IV PRN ×2 (05:31→18:41)
[2019-01-27] MEDS: D5W AND 1/2NSS 1,000 ML IV SCH (05:31)
[2019-01-27 07:35] LABS: Creatinine Clr Calc Pharmacy 93.3 ml/min; Est GFR (African American) 113.5
[2019-01-27] MEDS: VANCOMYCIN HCL 1,000 MG in SODIUM CHLORIDE 0.9% 250 ML IV SCH ×2 (08:06→20:22)
[2019-01-27] MEDS: SALMETEROL XINAFOATE 50MCG 28 BLISTER INH INH SCH ×2 (08:07→20:23)
--- NOTE | 2019-01-27 10:09 | Infectious Disease Consult ---
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 Vancomycin appropriate pending further culture results. Will discuss with orthopedic surgery further surgical management. Will follow. (2) MRSA (methicillin resistant Staphylococcus aureus): (3) Cellulitis: History of Present Illness Reason for Consultation: Left knee infection Attending Physician: Giovanni Starkey DO History of Present Illness 63-year-old female well-known to me with history of previous left knee replacement, with subsequent recent infection with MRSA, status post removal of prosthesis with antibiotic spacer and prolonged IV antibiotics. Had reimplantation and had been doing well until last week when she developed progressively worsening pain in her left ibarra area with developing erythema associated with fever. She was given anti-inflammatories and antibiotics but symptoms worsened, and was found to have markedly elevated sed rate and C- reactive protein and was admitted for further management. Has had knee aspirated with elevated white blood cell count and Gram stain showing gram- positive cocci. Culture is pending. Currently on IV vancomycin and is noted improvement with decrease in the erythema and pain. Pain currently 3 out of 10 in intensity left ibarra area. Allergies Allergy/AdvReac Type Severity Reaction Status Date / Time hydrocodone AdvReac Intermediate Headache Verified 01/26/19 12:27 hydromorphone AdvReac Intermediate NIGHTMARES Verified 01/26/19 12:27 oxycodone AdvReac Intermediate headaches Verified 01/26/19 12:27 tetracycline AdvReac Mild NAUSEA Verified 01/26/19 12:27 tramadol AdvReac Mild DISORIENTED Verified 01/26/19 12:27 PAIN MEDICATION Allergy Unknown SEVERE Uncoded 01/26/19 12:27 HEADACHES Home Medications Home Medications Medication Instructions Recorded Confirmed Type Probiotic 1 tab PO BID 08/11/18 01/26/19 History albuterol sulfate [Proventil HFA] 2 puff INHALATION Q6H PRN 08/11/18 01/26/19 History famotidine [Pepcid] 20 mg PO DAILY PRN 08/11/18 01/26/19 History montelukast [Singulair] 10 mg PO HS 08/11/18 01/26/19 History rizatriptan 1 tab PO DAILY PRN 10/01/18 03/18/19 History tapentadol [Nucynta] 50 mg PO .q4-6 hours PRN #60 tab 10/17/18 01/26/19 Rx acetaminophen [Tylenol Arthritis 1,300 mg PO QAM 01/26/19 01/26/19 History Pain] celecoxib 200 mg PO UD 01/26/19 01/26/19 History salmeterol [Serevent Diskus] 1 inh INHALATION BID 01/26/19 01/26/19 History Patient History Medical History Hx of blood clots History of revision of total replacement of left knee joint 10/15/18. SAB with peripheral nerve block. no issues. 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 Anemia CHRONIC- BASELINE HGB 10-11 RANGE PER CHART REVIEW Asthma GERD (gastroesophageal reflux disease) History of paroxysmal atrial tachycardia REMOTE- "LONG TIME AGO" PER PATIENT; NO RECENT ISSUES Hx of thrombosis LEFT GROIN (1979)- WAS ON COUMADIN; SINCE DISCONTINUED Left knee DJD Migraines Osteoarthritis Surgical History History of left knee surgery I&D and poly replacement History of tooth extraction WISDOM Hx of arthroscopic knee surgery MULTIPLE B/L; MOST RECENT= LEFT KNEE INSERTION ANTIBIOTIC SPACER/REMOVAL PROSTHESIS 2/2 INFECTION= 08/18/16= LMA#4 X 1 ATTEMPT Hx of hysterectomy Hx of tonsillectomy Hx of total knee replacement RIGHT AND LEFT PICC (peripherally inserted central catheter) in place Social History Preferred Language: Upper Sorbian Communication Ability: Effective Manager Community Relations Required: No Beliefs That Will Affect Care: None marital status: Current Living Situation: Spouse Current Living Situation Comment: CURRENTLY HAS [employer] COMING REGULARLY Other Information That Helps Us Care for You: No Feels Safe at Home: Yes Safety Concerns: Feels Safe At This Time Smoking Status: Never smoker Hx Alcohol Use: Yes Hx Substance Use: No Review of Systems All systems were reviewed and are negative except as per HPI Physical Exam Vital Signs (Past 24 Hours): Last Vital Signs Temp 37.1 C 01/27/19 06:54 Pulse 85 01/27/19 06:54 Resp 18 01/27/19 06:54 BP 126/70 01/27/19 06:54 Pulse Ox 95 01/27/19 06:54 Constitutional: WD/WN, vitals as above comfortable; no acute distress Eyes: PERRL, conjunctivae normal, anicteric sclerae ENMT: external ear and nose normal, oropharynx normal Neck: trachea midline, no thyromegaly neck nontender Respiratory: normal respiratory effort, lungs clear to auscultation normal percussion; does not use accessory muscles Cardiovascular: Rate/Rhythm: regular rate and regular rhythm Heart Sounds: normal S1 and normal S2; no gallop, no murmur and no cardiac rub Vessels: normal peripheral pulses; no JVD Gastrointestinal (Abdomen): normal bowel sounds, soft, nontender, no hepatosplenomegaly Musculoskeletal: no cyanosis or clubbing, extremities motor strength 5/5 Spine: thoracic spine normal to inspection and lumbar spine normal to inspection; no cervical spinal tenderness Knee: + knee abnormal to inspection (Swelling left knee) Skin: no rashes, warm and dry normal turgor and + erythema (Fading below- knee left leg) Surgical incision well-healed Neurologic: patellar DTR's 2+ bilat, sensation intact no focal motor deficits Psychiatric: A+Ox3, euthymic affect Orientation: cooperative Lymphatic: no cervical or axillary lymphadenopathy no inguinal lymphadenopathy Results & Data Laboratory Results Short CBC 01/26/19 Range/Units 12:40 WBC 8.24 (4.8-10.8) K/uL Hgb 11.4 L (12.0-16.0) g/dL Hct 34.9 L (37-47) % Plt Count 263 (130-400) K/uL [facility] 01/26/19 01/27/19 12:40 06:38 Sodium 135 L Potassium 3.8 Chloride 102 Carbon Dioxide 26 BUN 8 Creatinine 0.70 0.57 L Glucose 109 H Calcium 8.9 Liver Function 01/26/19 Range/Units 12:40 Total Bilirubin 0.9 (0.2-1) mg/dl AST 9 L (15-37) U/L ALT 16 (12-78) U/L Alkaline Phosphatase 92 (45-117) U/L Albumin 3.3 L (3.4-5.0) gm/dl Urine 01/26/19 Range/Units 14:10 Urine Color Yellow Urine Appearance Clear (Clear) Urine pH 7.5 (4.5-7.5) Ur Specific [place] 1.010 (1.000-1.030) Urine Protein Negative (Negative) Urine Glucose (UA) Negative (Negative) Diagnostic Findings Microbiology 01/26/19 17:15 Knee,Left Gram Stain - Final XR knee LT 3V CLINICAL HISTORY: Pain. Swelling. Fever. COMPARISON: Left knee radiographs October 15, 2018. FINDINGS: Alignment of the revision left knee arthroplasty is anatomic. There is a large left knee joint effusion. No prostatic fracture or lucency. IMPRESSION: 1. Status post revision left knee arthroplasty. No periprosthetic fracture or lucency. 2. Large left knee joint effusion. Electronically signed by: Kulwinder Jo M.D. 01/26/2019 1:03 PM (1) Cellulitis Laterality: left Site of cellulitis: extremity Site of cellulitis of extremity: lower extremity Qualified Code(s): L03.116 - Cellulitis of left lower limb
[2019-01-27 10:55] LABS: Appearance Urine Clear (Clear); Bacteria Urine Automated Negative (Negative); Bilirubin Urine Negative (Negative); Blood Urine Trace (Negative); Color Urine Yellow; Epithelial Cell Urine Auto 20-30 /lpf (0-5); Glucose Urine UA Negative (Negative); Ketones Urine Negative (Negative); Leukocyte Esterase Urine Negative (Negative); Nitrite Urine Negative (Negative); Protein Urine Negative (Negative); RBC Urine Automated 0-4 /hpf (0-4); Specific Gravity Urine 1.013 (1.000-1.030); Urobilinogen Urine Negative (Negative)
[2019-01-27] MEDS ORDERED: fentaNYL citrate 100 MCG/2 ML VIAL ONE ×3 (13:31→15:28)
[2019-01-27] MEDS ORDERED: MIDAZOLAM HCL 1 MG/ML 2ML VIAL ONE ×3 (13:31→14:49)
--- NOTE | 2019-01-27 13:37 | History & Physical Bridge Note ---
Date of Service January 27, 2019 History & Physical Bridge Note I have examined the patient, reviewed the History & Physical and in the interval since the performance of the History & Physical I have noted the following changes of clinical significance: no changes noted
[2019-01-27] MEDS ORDERED: VANCOMYCIN HCL 1000MG/20ML VIAL ONE (14:31)
[2019-01-27] MEDS ORDERED: BACITRACIN INJ 50,000 UNIT VIAL ONE (14:31)
[2019-01-27] MEDS ORDERED: PROPOFOL IV EMULSION 10 MG/ML 20 ML VIAL IV ONE (14:48)
[2019-01-27] MEDS ORDERED: POVIDONE-IODINE OP SOLN 30 ML BTL ONE (14:48)
[2019-01-27] MEDS ORDERED: LIDOCAINE HCL 2% 2 ML VIAL/AMP(20MG/ML) INFIL ONE (14:48)
[2019-01-27] MEDS ORDERED: ePHEDrine sulfate 50 MG/ML SYR ONE (14:49)
[2019-01-27] MEDS ORDERED: ONDANSETRON INJ 2 MG/ML 2 ML VIAL IV PRN (15:02)
[2019-01-27] MEDS ORDERED: ATROPINE SULFATE 0.1 MG/ML 10ML SYR IV PRN (15:02)
[2019-01-27] MEDS ORDERED: ePHEDrine sulfate 50 MG/ML AMP IV PRN (15:02)
[2019-01-27] MEDS ORDERED: fentaNYL citrate 100 MCG/2 ML VIAL IV PRN (15:02)
[2019-01-27] MEDS ORDERED: KETOROLAC 30 MG/ML VIAL ONE (15:30)
--- NOTE | 2019-01-27 17:00 | Operative Report ---
Post Operative Report Pre & Post Diagnosis Operation Date: 01/27/19 07:30 Pre-Op Diagnosis: LEFT KNEE INFECTION Post-Op Diagnosis: LEFT KNEE INFECTION Procedure Operation Date: 01/27/19 07:30 Actual Procedures p Left Knee Incision and Drainage, Poly Exchange with Antibiotic Beads(Left) - Giovanni Starkey DO Surgeon Giovanni Starkey DO Block Captain Da RICHARDSON Estimated Blood Loss 10 Findings Consistent with Post-Op Diagnosis Patient presents a 63-year-old white female well-known to me with previous total knee arthroplasty subsequently developed an infection had an antibiotic spacer and then in October early October was revised to a stem total knee arthroplasty in a complicated fashion was doing remarkably well postoperatively with no effusion no recurrence of increased sed rate or C-reactive protein which were all down within normal limits postsurgically on Saturday presented the office with increased complaints of pain in her no knee pain no significant knee joint effusion no pain with ambulating just pain in her tibia subsequently presented the emergency room on Saturday with increased complaints of pain and some redness with swelling in her leg from approximately 3 cm below joint line in the anterior part of her leg her knee was aspirated under sterile conditions Betadine alcohol and aspirated this morning showed gram-positive cocci and she had developed an effusion of her knee she still had no complaints of knee pain and positive cocci in her aspirate this reason with increased sed rate from Saturday which was 25-75 yesterday who C-reactive protein levels from 4-11 obvious concern for intra-articular infection at the time of surgery was noted to have evidence of purulent seropurulent fluid in the left knee joint which was sent for culture cell count no significant synovial reaction was noted felt this was very acute in onset but clearly had not seropurulent fluid in the knee joint at the time of surgery patient underwent incision and drainage with pulse lavage versa jet poly-change up sized to a size 21 Specimens Synovial fluid synovium left knee Drains Medium bore Hemovac Complications none Disposition Accompanied Patient To Recovery: No Disposition: Recovery Room Indications Patient presents with increased complaints of left leg pain with an aspirate of the left knee which showed gram-positive cocci in a known previous revision to a antibiotic spacer with antibiotic spacer converted to a total knee arthroplasty she has a stemmed implant in her knee and effusion of her left knee today with warmth to her knee but no pain in her knee aspiration revealed the seropurulent yellow fluid with gram-positive cocci times surgery she was noted to have evidence of seropurulent fluid minimal synovial reaction but did have an effusion and an exam consistent with that of an obvious infected knee joint Description of Procedure After proper prepping draping the left lower extremity incision made the region of the previous incision dissection carried down to the extensor mechanism medial parapatellar incision was made was approximately first such that the fluid could be contained fluid was asked was evacuated a medial lateral compartment synovectomy was performed anterior compartment synovectomy was performed no significant synovial reaction was noted no evidence of loosening the femur or tibial components were noted nor was there any loosening of the patellar component the tibial poly-was removed wound was irrigated with 10 L of bacitracin sterile saline solution as well as a 2 L of bacitracin impregnated solution with a versa jet to complete the synovectomy entirety the wound having been thoroughly irrigated the implants were subsequently scrubbed with Betadine scrub brush were soaked with Betadine for 5 minutes as well subsequently after thorough irrigation debridement lavage was performed the drapes and gloves were all changed the femoral and tibial components were once again inspected notes of loosening was noted the poly-have been removed the poly-was trialed and sized for flexion extension flexion 210 degrees the wound was then once again irrigated the final poly-was brought in the field placed the medium bore Hemovac was placed in the deep wound of the medial retinacular incision was closed with #2 FiberWire and #1 Vicryl subcu was closed 2-0 Vicryl skin was closed skin clips sterile compressive dressing was placed patient taken recovery in stable condition appropriate dictated by Lalito please note Da RICHARDSON was necessary for prepping draping retraction wound closure defect subcu skin was necessary for the case I attest to the content of the Intraoperative Record and any orders documented therein. Any exceptions are noted below.
[2019-01-27] MEDS: ACETAMINOPHEN 1,000 MG/100 ML VIAL IV PRN (17:28)
--- NOTE | 2019-01-27 17:52 | Anesthesiology Progress Note ---
Date of Service January 27, 2019 Anesthesia Post Procedure Vital Signs Vital Signs: Temp Pulse Pulse Pulse Resp BP BP 01/27/19 17:45 77 21 130/66 01/27/19 17:35 69 15 110/69 01/27/19 17:25 84 20 141/77 H 01/27/19 17:15 36.8 C 90 14 103/60 01/27/19 13:09 38.4 C H 87 20 148/69 H 01/27/19 06:54 37.1 C 85 18 126/70 01/26/19 23:31 37.0 C 78 14 127/69 01/26/19 17:54 37.1 C 78 20 122/74 Pulse Ox 01/27/19 17:45 100 01/27/19 17:35 100 01/27/19 17:25 100 01/27/19 17:15 98 01/27/19 13:09 97 01/27/19 06:54 95 01/26/19 23:31 96 01/26/19 17:54 96 Pain Intensity Left Lower Leg: Pain Intensity: 2 Notes Mental Status: alert / awake / arousable Patient Amnestic to Procedure: Yes Nausea / Vomiting: adequately controlled Pain: adequately controlled Airway Patency, RR, SpO2: stable & adequate BP & HR: stable & adequate Hydration State: stable & adequate Anesthetic Complications: no major complications apparent and Pt Satisfied with anesthetic care
--- NOTE | 2019-01-27 17:55 | XRay Report ---
TWO VIEWS LEFT KNEE CLINICAL HISTORY: Postoperative examination. FINDINGS: AP and crosstable lateral portable views of the left knee are obtained. A left knee arthrop lasty is in near anatomic alignment. There are long tibial and femoral stems. There has been undersur face remodeling of the patella. Antibiotic implants are noted around the distal femur and joint space . No acute fracture is seen. There are expected postoperative changes around the knee including skin clips, a surgical drain, soft tissue edema, and subcutaneous gas. IMPRESSION: 1. Expected postoperative change is seen around the left knee. The arthroplasty is in near-anatomic a lignment and no acute fracture is identified. 2. Antibiotic implants are noted around the distal femur and the joint space. Electronically signed by: Blaze Richardson M.D. 01/27/2019 5:54 PM
[2019-01-27] MEDS ORDERED: NALOXONE HCL 0.4 MG/1 ML VIAL/CARP IV PRN (18:17)
[2019-01-27] MEDS ORDERED: SODIUM CHLORIDE 0.9% 1000ML 1,000 ML IV SCH (18:17)
[2019-01-27] MEDS ORDERED: MAGNESIUM HYDROXIDE SUSP 30 ML UDC PO PRN (18:17)
[2019-01-27] MEDS ORDERED: BISACODYL 10 MG SUPP PR PRN (18:17)
[2019-01-27] MEDS: MONTELUKAST SODIUM 10 MG TABLET PO SCH (20:23)
[2019-01-27] MEDS: FAMOTIDINE 20 MG TAB PO PRN (20:39)
[2019-01-27] MEDS: SENNA 8.6 MG TAB PO SCH (20:43)
[2019-01-27] MEDS: DOCUSATE SODIUM 100 MG CAP PO SCH (20:43)
[2019-01-28] MEDS: KETOROLAC TROMETHAMINE 15 MG/ML VIAL IV PRN ×3 (07:27→23:52)
[2019-01-28] MEDS ORDERED: VANCOMYCIN TROUGH ONE (07:30)
[2019-01-28 08:06] LABS: Hemoglobin 9.5 g/dL (12.0-16.0); Mean Corpuscular Hgb Conc 31.7 g/dL (32-36); Mean Corpuscular Volume 79.6 fL (80-100); Mean Platelet Volume 9.2 fL (7.4-10.4); Platelet Count 219 K/uL (130-400); RDW Coefficient of Variation 14.7 % (11.5-14.5); RDW Standard Deviation 42.8 fL (36.4-46.3); Red Blood Count 3.77 M/uL (4.2-5.4); White Blood Count 5.44 K/uL (4.8-10.8)
[2019-01-28] MEDS: ACETAMINOPHEN 1,000 MG/100 ML VIAL IV PRN (08:07)
[2019-01-28 08:21] LABS: BUN Creatinine Ratio 11.1 (10-20); Calcium 8.7 mg/dl (8.5-10.1); Creatinine Clr Calc Pharmacy 88.7 ml/min; Est GFR (African American) 111.6; Est GFR (Non-African American) 96.3; Potassium 3.9 mmol/L (3.5-5.1)
[2019-01-28] MEDS: VANCOMYCIN HCL 1,000 MG in SODIUM CHLORIDE 0.9% 250 ML IV SCH ×3 (08:23→23:52)
[2019-01-28] MEDS: SALMETEROL XINAFOATE 50MCG 28 BLISTER INH INH SCH ×2 (08:24→20:05)
[2019-01-28] MEDS: MULTIVITAMIN TAB PO SCH (08:24)
[2019-01-28] MEDS: DOCUSATE SODIUM 100 MG CAP PO SCH ×2 (08:24→20:05)
--- NOTE | 2019-01-28 09:12 | Pharmacy Report ---
Pharmacy Abx Dose Short Note - Date of Service January 28, 2019 - Assessment & Plan Assessment 63 year old F receiving vancomycin for treatment of infected L knee, with cultures growing MRSA. Day # 3/10 of antimicrobial therapy ID has been consulted SCr has remained stable throughout therapy Plan Vancomycin * Trough level of 9 mcg/mL is subtherapeutic * Change to 1000 mg (16 mg/kg) IV every 8 hours * Goal trough level for L knee infection w/ vanc STEPH = 2 : ~20 mcg/mL * Trough level ordered for: 01/29/19 * Consider switching to alternate MRSA therapy (daptomycin) as target troughs of ~20 may be difficult to reach without increasing the risk of nephrotoxicity Pharmacy will continue to follow and will adjust dose/frequency as necessary. Thank you.
--- NOTE | 2019-01-28 10:45 | Infectious Disease Progress Nt ---
Date of Service January 28, 2019 Assessment & Plan (1) Infection of total left knee replacement: Patient with infected left TKA with MRSA, status post debridement and poly-exchange. Patient will continue on vancomycin for now, likely transition to daptomycin to allow for outpatient therapy, likely in the range of 6-8 weeks. Will follow. (2) MRSA (methicillin resistant Staphylococcus aureus): Subjective Patient seen in follow-up for left knee infection. Now status post debridement and poly-exchange. Cultures growing MRSA. Tolerating vancomycin. Currently afebrile. Review of Systems All systems reviewed & are unremarkable except as noted in HPI & below Physical Exam Vital Signs (Past 24 Hours): Last Vital Signs Temp 37.6 C H 01/28/19 08:06 Pulse 96 H 01/28/19 08:06 Resp 18 01/28/19 08:06 BP 138/68 01/28/19 08:06 Pulse Ox 94 01/28/19 08:06 Constitutional: WD/WN, vitals as above comfortable; no acute distress Eyes: PERRL, conjunctivae normal, anicteric sclerae ENMT: external ear and nose normal, oropharynx normal Neck: trachea midline, no thyromegaly neck nontender Respiratory: normal respiratory effort, lungs clear to auscultation normal percussion; does not use accessory muscles Cardiovascular: Rate/Rhythm: regular rate and regular rhythm Heart Sounds: normal S1 and normal S2; no gallop, no murmur and no cardiac rub Vessels: normal peripheral pulses; no JVD Gastrointestinal (Abdomen): normal bowel sounds, soft, nontender, no hepatosplenomegaly Musculoskeletal: no cyanosis or clubbing, extremities motor strength 5/5 Spine: thoracic spine normal to inspection and lumbar spine normal to inspection; no cervical spinal tenderness Knee: + knee abnormal to inspection (Swelling left knee) Skin: no rashes, warm and dry Surgical dressing intact left knee Neurologic: patellar DTR's 2+ bilat, sensation intact no focal motor deficits Psychiatric: A+Ox3, euthymic affect Orientation: cooperative Lymphatic: no cervical or axillary lymphadenopathy no inguinal lymphadenopathy Results & Data Laboratory Results Short CBC 01/28/19 Range/Units 07:43 WBC 5.44 (4.8-10.8) K/uL Hgb 9.5 L (12.0-16.0) g/dL Hct 30.0 L (37-47) % Plt Count 219 (130-400) K/uL BMP 01/28/19 07:43 Sodium 137 Potassium 3.9 Chloride 105 Carbon Dioxide 26 BUN 7 Creatinine 0.60 Glucose 97 Calcium 8.7 Urine 01/27/19 Range/Units Unknown Urine Color Yellow Urine Appearance Clear (Clear) Urine pH 6.0 (4.5-7.5) Ur Specific [place] 1.013 (1.000-1.030) Urine Protein Negative (Negative) Urine Glucose (UA) Negative (Negative) Diagnostic Findings Microbiology 01/26/19 17:15 Knee,Left Gram Stain - Final 01/26/19 17:15 Knee,Left Aerobic and Anaerobic Culture - Preliminary Staph aureus MRSA 01/27/19 16:00 Knee,Left Gram Stain - Final 01/27/19 16:00 Knee,Left Aerobic and Anaerobic Culture - Preliminary Staphylococcus aureus 01/26/19 12:40 Blood Blood Culture - Preliminary No growth to date. 01/26/19 12:40 Blood Blood Culture - Preliminary No growth to date.
--- NOTE | 2019-01-28 13:07 | Orthopedic Progress Note ---
Date of Service January 28, 2019 Assessment & Plan (1) Infection of total left knee replacement: Cultures showing Staph Aureus. Sensitivites pending. (h/o MRSA) Continue IV antibx as per ID Team. (Vanco currently) PT/OT - WBAT; gentle ROM DVT prophylaxis; ASA,SCD's,JARVIS's Pain managment. Nucynta,IV Morphine,Acetaminophen Pt will need Picc line placed for assisted antibx. Subjective POD 1 s/p I/D Left Septic TKA Pt sitting up in bed about to eat lunch. Feeling much better today. States she went through PT this AM which seemed to go well. Pain controlled currently. Denies SOB,CP,LH. Discussed the need for a Picc line which she has had before. Physical Exam Vital Signs (Past 24 Hours): Last Vital Signs Temp 37.2 C 01/28/19 12:22 Pulse 70 01/28/19 12:22 Resp 16 01/28/19 12:22 BP 115/69 01/28/19 12:22 Pulse Ox 96 01/28/19 12:22 Physical Exam: Dressings C/D/I. Calves soft, NT. NV intact. Toes mobile. HV 50ml latest shift. Results & Data Laboratory Results 01/28/19 01/28/19 01/28/19 Range/Units 07:43 07:43 07:43 WBC 5.44 (4.8-10.8) K/uL RBC 3.77 L (4.2-5.4) M/uL Hgb 9.5 L (12.0-16.0) g/dL Hct 30.0 L (37-47) % MCV 79.6 L (80-100) fL MCH 25.2 (25-34) pg MCHC 31.7 L (32-36) g/dL RDW Std Deviation 42.8 (36.4-46.3) fL RDW Coeff of Yolanda 14.7 H (11.5-14.5) % Plt Count 219 (130-400) K/uL MPV 9.2 (7.4-10.4) fL Sodium 137 (136-145) mmol/L Potassium 3.9 (3.5-5.1) mmol/L Chloride 105 (98-107) mmol/L Carbon Dioxide 26 (21-32) mmol/L Anion Gap 6.0 (3-11) BUN 7 (7-18) mg/dl Creatinine 0.60 (0.6-1.2) mg/dl Est Cr Clr Drug Dosing 88.7 ml/min Est GFR ( Amer) 111.6 Est GFR (Non-Af Amer) 96.3 BUN/Creatinine Ratio 11.1 (10-20) Glucose 97 (70-99) mg/dl Calcium 8.7 (8.5-10.1) mg/dl Vancomycin Trough 9.0 (See Comment) mcg/ml
[2019-01-28] MEDS: FAMOTIDINE 20 MG TAB PO PRN (19:27)
[2019-01-28] MEDS: SENNA 8.6 MG TAB PO SCH (20:05)
[2019-01-28] MEDS: ASPIRIN 81 MG ECTAB PO SCH (20:08)
[2019-01-28] MEDS: MONTELUKAST SODIUM 10 MG TABLET PO SCH (20:08)
[2019-01-29 07:30] LABS: Creatinine Clr Calc Pharmacy 93.3 ml/min; Est GFR (African American) 113.5
[2019-01-29] MEDS: VANCOMYCIN HCL 1,000 MG in SODIUM CHLORIDE 0.9% 250 ML IV SCH ×2 (09:01→16:40)
[2019-01-29] MEDS: DOCUSATE SODIUM 100 MG CAP PO SCH ×2 (09:04→21:17)
[2019-01-29] MEDS: MULTIVITAMIN TAB PO SCH (09:04)
[2019-01-29] MEDS: ASPIRIN 81 MG ECTAB PO SCH ×2 (09:04→21:16)
[2019-01-29] MEDS: SALMETEROL XINAFOATE 50MCG 28 BLISTER INH INH SCH ×2 (09:04→21:14)
--- NOTE | 2019-01-29 09:14 | Orthopedic Progress Note ---
Date of Service January 29, 2019 Assessment & Plan (1) Infection of total left knee replacement: (1) Infection of total left knee replacement: Patient with infected left TKA with MRSA, POD #2 s/p I&D, poly change antibiotic beads. IV consulted appreciate input. Patient will continue on vancomycin for now, likely transition to daptomycin to allow for outpatient therapy, 6-8 weeks. (2) MRSA (methicillin resistant Staphylococcus aureus) PT/OT - WBAT; gentle ROM DVT prophylaxis; ASA,SCD's,JARVIS's Pain managment. Nucynta,IV Morphine,Acetaminophen PICC ordered for today bone scan ordered for today as well. Subjective POD 2 s/p I/D Left Septic TKA Pt sitting up bedside chair. tearful this am but consolable . Pain controlled currently. Denies SOB,CP,LH. Physical Exam Vital Signs (Past 24 Hours): Last Vital Signs Temp 36.9 C 01/29/19 07:00 Pulse 93 H 01/29/19 07:00 Resp 18 01/29/19 07:00 BP 124/66 01/29/19 07:00 Pulse Ox 94 01/29/19 07:00 Constitutional: WD/WN, vitals as above no acute distress Musculoskeletal: prevena intact, calf SNT, NVDI.
--- NOTE | 2019-01-29 10:16 | Infectious Disease Progress Nt ---
Date of Service January 29, 2019 Assessment & Plan (1) Infection of total left knee replacement: Patient with infected left TKA with MRSA, status post debridement and poly-exchange. Patient will continue on vancomycin for now, to check insurance coverage for daptomycin to allow for outpatient therapy, likely in the range of 6-8 weeks. Will follow. (2) MRSA (methicillin resistant Staphylococcus aureus): Subjective Patient seen in follow-up for left knee infection. Now status post debridement and poly-exchange. Cultures growing MRSA. Tolerating vancomycin. Currently afebrile. Physical Exam Vital Signs (Past 24 Hours): Last Vital Signs Temp 36.9 C 01/29/19 07:00 Pulse 93 H 01/29/19 07:00 Resp 18 01/29/19 07:00 BP 124/66 01/29/19 07:00 Pulse Ox 94 01/29/19 07:00 Constitutional: WD/WN, vitals as above comfortable; no acute distress Eyes: PERRL, conjunctivae normal, anicteric sclerae ENMT: external ear and nose normal, oropharynx normal Neck: trachea midline, no thyromegaly neck nontender Respiratory: normal respiratory effort, lungs clear to auscultation normal percussion; does not use accessory muscles Cardiovascular: Rate/Rhythm: regular rate and regular rhythm Heart Sounds: normal S1 and normal S2; no gallop, no murmur and no cardiac rub Vessels: normal peripheral pulses; no JVD Gastrointestinal (Abdomen): normal bowel sounds, soft, nontender, no hepatosplenomegaly Musculoskeletal: no cyanosis or clubbing, extremities motor strength 5/5 Spine: thoracic spine normal to inspection and lumbar spine normal to inspection; no cervical spinal tenderness Knee: + knee abnormal to inspection (Swelling left knee) Skin: no rashes, warm and dry normal turgor and + erythema (Fading below- knee left leg) Neurologic: patellar DTR's 2+ bilat, sensation intact no focal motor deficits Psychiatric: A+Ox3, euthymic affect Orientation: cooperative Lymphatic: no cervical or axillary lymphadenopathy no inguinal lymphadenopathy Results & Data Laboratory Results [facility] 01/29/19 06:34 Creatinine 0.57 L Diagnostic Findings Microbiology 01/27/19 16:00 Knee,Left Gram Stain - Final 01/27/19 16:00 Knee,Left Aerobic and Anaerobic Culture - Preliminary Staph aureus MRSA 01/26/19 17:15 Knee,Left Gram Stain - Final 01/26/19 17:15 Knee,Left Aerobic and Anaerobic Culture - Preliminary Staph aureus MRSA 01/26/19 12:40 Blood Blood Culture - Preliminary No growth to date. 01/26/19 12:40 Blood Blood Culture - Preliminary No growth to date.
[2019-01-29] MEDS: KETOROLAC TROMETHAMINE 15 MG/ML VIAL IV PRN (12:48)
--- NOTE | 2019-01-29 13:44 | Nuclear Medicine Report ---
NM bone 3 phase ltd HISTORY: Left knee pain. r/o osteo left knee vs other sources TECHNIQUE: Immediately and 3 hours from the intravenous administration of 25 mCi of technetium 99 M M DP, 3 phase bone scan of the knees was performed. COMPARISON STUDY: Left knee 01/27/2019. FINDINGS: Abnormal radiotracer uptake surrounding the left knee on the blood pool and blood flow sequ ences. There is also abnormal radiotracer uptake surrounding both the femoral and tibial prostheses o f the left knee. IMPRESSION: Abnormal 3 phase radiotracer uptake within the periprosthetic location of the left knee which is sugg estive of infection. The Electronically signed by: Gordo Deleon M.D. 01/29/2019 1:43 PM
[2019-01-29] MEDS ORDERED: VANCOMYCIN TROUGH ONE (15:30)
--- NOTE | 2019-01-29 16:12 | Pharmacy Report ---
Pharmacy Abx Dose Short Note - Date of Service January 29, 2019 - Assessment & Plan Assessment 63 year old F receiving vancomycin for treatment of MRSA infected left TKA, status post debridement and poly-exchange Day # 4 of antimicrobial therapy. Plan Vancomycin * Trough level of 17.3 mcg/mL is therapeutic * Continue dose of 1000 mg IV every 8 hours * Goal trough level 15-20 mcg/mL * Trough ordered for 01/30 @ 0730 Pharmacy will continue to follow and will adjust dose/frequency as necessary. Thank you.
[2019-01-29] MEDS: MONTELUKAST SODIUM 10 MG TABLET PO SCH (21:16)
[2019-01-29] MEDS: SENNA 8.6 MG TAB PO SCH (21:17)
[2019-01-30] MEDS: VANCOMYCIN HCL 1,000 MG in SODIUM CHLORIDE 0.9% 250 ML IV SCH ×4 (00:31→23:43)
[2019-01-30] MEDS ORDERED: VANCOMYCIN TROUGH ONE (07:30)
--- NOTE | 2019-01-30 07:50 | Orthopedic Progress Note ---
Date of Service January 30, 2019 Assessment & Plan (1) Infection of total left knee replacement: (1) Infection of total left knee replacement: Patient with infected left TKA with MRSA, POD #3 s/p I&D, poly change antibiotic beads. IV consulted appreciate input. Patient will continue on vancomycin for now, will need 6-8 weeks minimum of IV antibiotics, had difficult time inserting PICC yesterday, hydrated overnight will re-attempt today. will discuss with Dr Rodriguez any other considerations of home Antibiotics due to poor insurance coverage of the dapto. (2) MRSA (methicillin resistant Staphylococcus aureus) PT/OT - WBAT; gentle ROM DVT prophylaxis; ASA,SCD's,JARVIS's Pain managment. Nucynta,IV Morphine,Acetaminophen reattempt PICC today will review bone scan with dr davison later today. Subjective POD 3 s/p I/D Left Septic TKA Pt resting comfortably in bed. no major complaints denies Fever/Chills . Pain controlled currently. Denies SOB,CP,LH. Physical Exam Vital Signs (Past 24 Hours): Last Vital Signs Temp 37.6 C H 01/29/19 22:46 Pulse 84 01/29/19 22:46 Resp 16 01/29/19 22:46 BP 131/76 01/29/19 22:46 Pulse Ox 98 01/29/19 22:46 Constitutional: WD/WN, vitals as above no acute distress Musculoskeletal: Left Knee: NVDI, calf SNT, negative jonathon sign. DP palpable, able to wiggle toes/ankle movement without difficulty. prevena wound vac intact. expected post-operative bruising noted. Results & Data Laboratory Results Name: ROHIT ZARCO Acct: [id number] Status: [place] 1955 [facility] [place] 01/26/19 Age: 63 Sex: F Dis Date: Loc: Medical/Surgical/Ortho [address] [facility] Rm/Bed: [facility] Spec: [id number] Collected: 01/27/19 Received: 01/27/[address]: Giovanni Davison,D.O. Copy To: Hernan Rodriguez MD Self, Referred Hanna Munoz DO Source: Knee,Left OV Order: Ordered: Aer/Kady Cult/Sm Comments: Comment 1. Left Knee Synovial Fluid Procedure Result Verified Site Gram Stain Final 01/28/19 Gram Stain Result Few WBCs Seen No Organisms Seen Aero/Kady Cult Preliminary 01/29/19 Organism 1 Staph aureus MRSA Quantity Rare Sens Sensitivities to Follow Sensitivity results indicate a Methicillin-Resistant Staph aureus. Phoned to HUANG URIBE on 01/29/19 at 0700 by Preston Wallis. Results were verbalized back. MRSA RX M.I.C. --- --------- Clindamycin S <=0.5 Daptomycin S <=0.5 Erythromycin S <=0.5 Oxacillin R >2 Rifampin S <=1 Tetracycline S <=4 Trimeth/Sulfa S <=0.5/9.5 Vancomycin S 2 S = SENSITIVE I = INTERMEDIATE R = RESISTANT
[2019-01-30] MEDS: ASPIRIN 81 MG ECTAB PO SCH ×2 (07:52→20:24)
[2019-01-30] MEDS: SALMETEROL XINAFOATE 50MCG 28 BLISTER INH INH SCH ×2 (07:52→20:20)
[2019-01-30] MEDS: DOCUSATE SODIUM 100 MG CAP PO SCH ×2 (07:52→20:18)
[2019-01-30] MEDS: MULTIVITAMIN TAB PO SCH (07:53)
--- NOTE | 2019-01-30 09:44 | Pharmacy Report ---
Pharmacy Abx Dose Short Note - Date of Service January 30, 2019 - Assessment & Plan Assessment 63 year old F receiving vancomycin for treatment of MRSA infected knee Day # 5 of antimicrobial therapy. Plan Vancomycin * Trough level of 18.3 mcg/mL is therapeutic * repeated so soon after previous because previous was drawn ~6 hours from previous dose * Continue dose of 1000 mg IV every 8 hours * Goal trough level for 15-20 mcg/mL * Trough ordered for 02/01 @ 0730 Pharmacy will continue to follow and will adjust dose/frequency as necessary. Thank you.
--- NOTE | 2019-01-30 15:54 | Infectious Disease Progress Nt ---
Date of Service January 30, 2019 Assessment & Plan (1) Infection of total left knee replacement: Patient with infected left TKA with MRSA, status post debridement and poly-exchange. Patient will need 6+ weeks of antibiotics, if daptomycin not feasible, alternatives would be IV vancomycin (difficult as being given q 8 hours) or ceftaroline 600 mg q 12 hours. There is in vivo data suggesting combination of oral linezolid 600 mg bid with rifampin 300 mg bid would be effective, but no good human trials to confirm this. Will discuss. (2) MRSA (methicillin resistant Staphylococcus aureus): Subjective Patient seen in follow-up for left knee infection. Now status post debridement and poly-exchange. Cultures growing MRSA. Tolerating vancomycin. Currently afebrile. Review of Systems All systems reviewed & are unremarkable except as noted in HPI & below Physical Exam Vital Signs (Past 24 Hours): Last Vital Signs Temp 37 C 01/30/19 14:48 Pulse 92 H 01/30/19 14:48 Resp 16 01/30/19 14:48 BP 150/67 H 01/30/19 14:48 Pulse Ox 95 01/30/19 14:48 Constitutional: WD/WN, vitals as above comfortable; no acute distress Eyes: PERRL, conjunctivae normal, anicteric sclerae ENMT: external ear and nose normal, oropharynx normal Neck: trachea midline, no thyromegaly neck nontender Respiratory: normal respiratory effort, lungs clear to auscultation normal percussion; does not use accessory muscles Cardiovascular: Rate/Rhythm: regular rate and regular rhythm Heart Sounds: normal S1 and normal S2; no gallop, no murmur and no cardiac rub Vessels: normal peripheral pulses; no JVD Gastrointestinal (Abdomen): normal bowel sounds, soft, nontender, no hepatosplenomegaly Musculoskeletal: no cyanosis or clubbing, extremities motor strength 5/5 Spine: thoracic spine normal to inspection and lumbar spine normal to inspection; no cervical spinal tenderness Knee: + knee abnormal to inspection (Swelling left knee) Skin: no rashes, warm and dry normal turgor and + erythema (Fading below- knee left leg) Neurologic: patellar DTR's 2+ bilat, sensation intact no focal motor deficits Psychiatric: A+Ox3, euthymic affect Orientation: cooperative Lymphatic: no cervical or axillary lymphadenopathy no inguinal lymphadenopathy Results & Data Laboratory Results Laboratory Results - last 48 hr 01/29/19 01/29/19 01/30/19 06:34 15:30 07:27 Creatinine 0.57 L Est Cr Clr Drug Dosing 93.3 Est GFR ( Amer) 113.5 Est GFR (Non-Af Amer) 98.0 Vancomycin Trough 17.3 18.3 Diagnostic Findings Microbiology 01/27/19 16:00 Knee,Left Gram Stain - Final 01/27/19 16:00 Knee,Left Aerobic and Anaerobic Culture - Preliminary Staph aureus MRSA 01/26/19 17:15 Knee,Left Gram Stain - Final 01/26/19 17:15 Knee,Left Aerobic and Anaerobic Culture - Preliminary Staph aureus MRSA 01/26/19 12:40 Blood Blood Culture - Preliminary No growth to date. 01/26/19 12:40 Blood Blood Culture - Preliminary No growth to date.
[2019-01-30] MEDS: SENNA 8.6 MG TAB PO SCH (20:18)
[2019-01-30] MEDS: MONTELUKAST SODIUM 10 MG TABLET PO SCH (20:24)
[2019-01-30] MEDS: ACETAMINOPHEN 500 MG TAB PO PRN (20:25)
[2019-01-31 07:26] LABS: Creatinine Clr Calc Pharmacy 90.2 ml/min; Est GFR (African American) 112.3; Est GFR (Non-African American) 96.9
[2019-01-31] MEDS: ACETAMINOPHEN 500 MG TAB PO PRN (08:11)
[2019-01-31] MEDS: ASPIRIN 81 MG ECTAB PO SCH (08:12)
[2019-01-31] MEDS: VANCOMYCIN HCL 1,000 MG in SODIUM CHLORIDE 0.9% 250 ML IV SCH (08:12)
[2019-01-31] MEDS: MULTIVITAMIN TAB PO SCH (08:12)
[2019-01-31] MEDS: SALMETEROL XINAFOATE 50MCG 28 BLISTER INH INH SCH (08:12)
[2019-01-31] MEDS: DOCUSATE SODIUM 100 MG CAP PO SCH (08:14)
--- NOTE | 2019-01-31 10:16 | Infectious Disease Progress Nt ---
Date of Service January 31, 2019 Assessment & Plan (1) Infection of total left knee replacement: Patient with infected left TKA with MRSA, status post debridement and poly-exchange. Patient will need 6+ weeks of antibiotics and will treat with ceftaroline 600 mg q 12 hours to allow easiest outpatient therapy. Will see in office in 2 weeks in follow-up. (2) MRSA (methicillin resistant Staphylococcus aureus): Subjective Patient seen in follow-up for left knee infection. Now status post debridement and poly-exchange. Cultures growing MRSA. Tolerating vancomycin. Currently afebrile. Review of Systems All systems reviewed & are unremarkable except as noted in HPI & below Physical Exam Vital Signs (Past 24 Hours): Last Vital Signs Temp 36.8 C 01/31/19 07:57 Pulse 90 01/31/19 07:57 Resp 18 01/31/19 07:57 BP 115/64 01/31/19 07:57 Pulse Ox 97 01/31/19 07:57 Constitutional: WD/WN, vitals as above comfortable; no acute distress Eyes: PERRL, conjunctivae normal, anicteric sclerae ENMT: external ear and nose normal, oropharynx normal Neck: trachea midline, no thyromegaly neck nontender Respiratory: normal respiratory effort, lungs clear to auscultation normal percussion; does not use accessory muscles Cardiovascular: Rate/Rhythm: regular rate and regular rhythm Heart Sounds: normal S1 and normal S2; no gallop, no murmur and no cardiac rub Vessels: normal peripheral pulses; no JVD Gastrointestinal (Abdomen): normal bowel sounds, soft, nontender, no hepatosplenomegaly Musculoskeletal: no cyanosis or clubbing, extremities motor strength 5/5 Spine: thoracic spine normal to inspection and lumbar spine normal to inspection ; no cervical spinal tenderness Knee: + knee abnormal to inspection (Swelling left knee) Skin: no rashes, warm and dry normal turgor and + erythema (Fading below- knee left leg) Neurologic: patellar DTR's 2+ bilat, sensation intact no focal motor deficits Psychiatric: A+Ox3, euthymic affect Orientation: cooperative Lymphatic: no cervical or axillary lymphadenopathy no inguinal lymphadenopathy
--- NOTE | 2019-01-31 10:17 | Orthopedic Progress Note ---
Date of Service January 31, 2019 Assessment & Plan (1) Infection of total left knee replacement: (1) Infection of total left knee replacement: Patient with infected left TKA with MRSA, POD #4 s/p I&D, poly change antibiotic beads. IV consulted appreciate input. Per Dr. Rodriguez and patient we will go with Ceftaroline 600mg BID for home antibx. PICC successfully placed. (2) MRSA (methicillin resistant Staphylococcus aureus) PT/OT - WBAT; gentle ROM DVT prophylaxis; ASA,SCD's,JARVIS's Pain managment. Nucynta,IV Morphine,Acetaminophen (3) D/c home w HH today for antibx administration and OPPT for knee therapy. Subjective POD 4 s/p I/D Left Septic TKA Pt resting comfortably in bed. no major complaints denies Fever/Chills . Pain controlled currently. Denies SOB,CP, N/V. Physical Exam Vital Signs (Past 24 Hours): Last Vital Signs Temp 36.8 C 01/31/19 07:57 Pulse 90 01/31/19 07:57 Resp 18 01/31/19 07:57 BP 115/64 01/31/19 07:57 Pulse Ox 97 01/31/19 07:57 Physical Exam: Left knee provena in tact, no drainage, no calf tenderness, toes and ankle mobile. A&Ox3.
[2019-01-31] MEDS ORDERED: CEFTAROLINE FOSAMIL ACETATE 600 MG in SODIUM CHLORIDE 0.9% 250 ML IV SCH (10:45)
[2019-02-01] MEDS ORDERED: VANCOMYCIN TROUGH ONE (07:30)
--- NOTE | 2019-02-02 10:33 | Discharge Summary ---
Date of Service February 04, 2019 Discharge Data Consultations 01/26/19 16:37 Consult Case Management - Discharge Planning Routine 01/26/19 16:45 ED Decision to Admit Stat 01/26/19 18:56 Consult Infectious Diseases Routine Procedures Performed Operation Date: 01/27/19 07:30 Actual Procedures p Poly Exchange with Antibiotic Beads(Left) - Giovanni Starkey DO s Left Knee Incision and Drainage(Left) - Giovanni Starkey DO
--- NOTE | 2019-02-03 05:00 | Discharge Summary ---
DISCHARGE DIAGNOSIS: Infection, left total knee arthroplasty. SECONDARY DIAGNOSES: History of MRSA infection in the past, asthma, gastroesophageal reflux disease, history of thrombosis in left groin 1980, migraine headaches, osteoarthritis. CONSULTS: Dr. Hernan Rodriguez. COMPLICATIONS: None. BRIEF HISTORY: As dictated in the history and physical. HOSPITAL SUMMARY: The patient was admitted on the above-noted date with the above noted knee infection. Her knee was aspirated in the Emergency Room and the cell count showed higher than 40,000 white cells and the culture eventually showed Staph aureus early on. She was then made n.p.o., and on 01/27/2019, she underwent irrigation and debridement with polyethylene bearing change by Dr. tSarkey. She was started on IV vancomycin and Dr. Rodriguez was consulted from infectious disease to continue to follow the patient along with orthopedics to discuss appropriate antibiotic choices. On the first postoperative day, she was sitting up in the bed about the lunch. She was feeling much better. She states she went through PT that morning and seemed to go well. Pain was controlled. Denies shortness of breath, chest pain, lightheadedness. Discussed the need for a PICC line which she had had before. Vital signs were stable. She was afebrile. Dressings clean, dry and intact. Calves were soft, nontender, neurovascularly intact. Toes were mobile. Hemovac was 50 mL in the latest shift. Hemoglobin showed 9.5, white count was 5.4. She was continued on her PT protocol, continued on DVT prophylaxis with aspirin, SCDs and TEDs, pain management with Nucynta, IV morphine and acetaminophen. A PICC line was planned and cultures were showing Staph aureus which early culture showed oxacillin resistance. By her second postoperative day, she was sitting at the bedside chair, tearful that morning but consolable. Pain was controlled. Denied shortness of breath, chest pain or lightheadedness. Vital signs were stable. She was afebrile. Prevena dressing was intact. Calves were soft, nontender. Neurovascular was intact. A bone scan was ordered and again she had MRSA showing, continued to use IV vancomycin and a PICC line was placed and a bone scan was planned for that day as well. By her third postoperative day, she was resting comfortably. No major complaints. Pain was controlled. Denies shortness of breath, chest pain or nausea, vomiting. Vital signs were stable and she was afebrile. Prevena dressing was intact. She had no calf tenderness. Toes and ankle were mobile and she was alert and oriented x3. Plans were for IV antibiotics for 6 weeks. Initially, plans were for possible daptomycin or vancomycin, which there was a hefty proctor with the daptomycin with the patient's insurance and Dr. Rodriguez then planned to go with ceftaroline 600 mg b.i.d. for home antibiotics. PICC was successfully placed. She was otherwise remaining stable and progressing well with her PT and it was felt she could be discharged to home. For further review, please see chart. LABORATORY AND X-RAY DATA: As per chart. DISCHARGE INSTRUCTIONS: The patient was discharged to home with home health services on 01/31/2019. Diet: Regular. Activity: Follow TK instruction sheets and special care instructions as noted. Follow up with Dr. Starkey in 2 weeks. The patient is to call for appointment if one has not been made for you. The patient is to follow up with Dr. Rodriguez and call for appointment, [phone]. DISCHARGE MEDICATIONS: Acetaminophen 1000 mg p.o. q. 8 hours, aspirin 81 mg p.o. b.i.d., ceftaroline 600 mg IV q. 12 hours, Nucynta 50-100 mg p.o. q. 4 hours p.r.n. Resume home meds as listed.
== END 2019-01-31 12:43 | disposition home health service (06) | DRG 486 ==
LOC: ED 10:28 → 3W 16:37